=== PATIENT | male | born 1990 | race Caucasian/White ===

== ENCOUNTER 2019-01-10 01:23 | Inpatient (IN) | payer BC, OTHER ==
[2019-01-10] MEDS ORDERED: NS 1,000 ML IV ONE ×2 (01:30)
[2019-01-10] MEDS ORDERED: fentaNYL 100 MCG/2 ML INJ IVP ONE (01:30)
[2019-01-10] MEDS ORDERED: HYDROmorphONE/DILAUDID 2 MG/ML INJ IVP ONE (01:30)
[2019-01-10] MEDS ORDERED: fentaNYL 100 MCG/2 ML INJ ONE ×2 (01:34→20:53)
[2019-01-10] MEDS ORDERED: ONDANSETRON 4 MG/2 ML VIAL IVP ONE (01:36)
--- NOTE | 2019-01-10 01:36 | EDPHY ---
H & P Time Seen by Provider: 01/10/19 01:32 HPI/ROS: HPI CHIEF COMPLAINT: FTA, Fall, Unknown Height, left chest wall pain, left femur pain. HISTORY OF PRESENT ILLNESS: This is a 28-year-old male, he fell climbing this evening. The patient apparently fell around 7:00 p.m. Yesterday evening is now 130 in the morning. EMS made contact with him around 9:00 p.m.. It took a prolonged period of time [place]. He arrives to the emergency room tachycardic in the 140s as a full trauma activation but a normal blood pressure. The patient is mentating appropriately in his main complaint is left lateral chest wall pain, additionally left femur pain. Patient states he is 8/10 pain. Patient received 100 mcg IV fentanyl prior to arrival. He arrives GCS 15, alert or x4. Patient is greeted by myself and Dr. Schaefer. Past Medical History: Denies significant medical history Past Surgical History: No recent surgical history Social History: Denies drugs alcohol tobacco. Family History: Noncontributory ROS REVIEW OF SYSTEMS: 10 Systems were reviewed and negative with the exception of the elements mentioned in the history of present illness. Exam Constitutional triage nursing summary reviewed, vital signs reviewed, awake/ alert. GCS 15, alert or x4. Eyes normal conjunctivae and sclera, EOMI, PERRLA. HENT head and neck atraumatic in cervical collar, normal inspection, atraumatic , moist mucus membranes, no epistaxis, neck supple/ no meningismus, no raccoon eyes. Respiratory decreased breath sounds left chest, no respiratory distress, no wheezing. Cardiovascular chest wall: Mild tender palpation left lateral chest wall, no crepitus, decreased breath sounds left chest rate normal, regular rhythm, no murmur, no edema, distal pulses normal. Gastrointestinal soft, non-tender, no rebound, no guarding, normal bowel sounds, no distension, no pulsatile mass. Genitourinary no CVA tenderness. Musculoskeletal left lower extremity: Neurovascular intact good distal pulse, good cap refill, warm extremity however pain to the mid femur region. no midline vertebral tenderness, full range of motion, no calf swelling, no tenderness of extremities, no meningismus, good pulses, neurovascularly intact. Skin abrasions left arm. Multiple abrasions of bilateral knees. Abrasion to left scapula. Neurologic mentating appropriately, awake, alert and oriented x 3, AAOx3, moves all 4 extremities equally, motor intact, sensory intact, CN II-XII intact , normal cerebellar, normal vision, normal speech. Psychiatric normal mood/affect. Heme/Lymph/Immune no lymphadenopathy. Differential Diagnosis: Includes but is not limited to in a particular order poly trauma, closed-head injury, intracranial bleed, cervical spine fracture, chest wall injury, rib fracture, pneumothorax, hemothorax, solid organ injury, hypothermia, dehydration Medical Decision Making: Plan for this patient IV establishment corner former , basic labs, type and screen, chest x-ray, pelvis x-ray, left femur x-ray will proceed with CT scan head and neck chest abdomen pelvis. Re-evaluation: 0130: Fast negative. 2nd IV established Type and screen Chest x-ray one view reviewed at bedside in ER room 2 shows a small left-sided pneumothorax, subcutaneous air present. Left femur x-ray reviewed shows proximal left femur fracture spiral comminuted. This patient need to be admitted to the hospital for left femur fracture, spiral comminuted, additionally multiple left-sided rib fractures, additionally left-sided pneumothorax, additionally dehydration, and a fall Patient to be admitted to Dr. Schaefer with Trauma surgery. Orthopedic surgeries been consulted Patient was placed in a traction splint left leg due to spiral left femur fracture. This is closed. Patient's left leg at neurovascular intact distally good distal pulse. CT scan head without contrast no acute intracranial abnormality faxed me by direct Radiology 2:[address] cervical spine: Shows no evidence of acute cervical spine fracture. However there is an acute T3 compression fracture with less than 25% height loss of the superior endplate CT scan chest abdomen pelvis with IV contrast faxed to me by direct Radiology at 3:32 a.m.. This shows acute fracture involving the T3 superior endplate anterior left 2nd and 4th ribs lateral left 6th and 7th ribs and comminuted intertrochanteric left femoral fracture No acute vascular solid organ injury There is prominence subcutaneous emphysema the left chest wall left-sided pneumothorax approximately 25% Pulmonary contusions involving the left upper lobe lingula right middle lobe Patient to be admitted to the ICU. Close monitoring. Dr. Cotto with Orthopedics also consult for the left femur fracture. Patient in traction. Good distal pulse good cap refill. Of the left lower extremity. Warm extremity. Critical Care: Total Critical Care Time Spent Managing this Patient: 85 Minutes. This time was spent Exclusively with this patient. This Care was exclusive of procedures. The Organ System/life at risk was poly trauma, multiple traumatic injuries including left-sided pneumothorax, left-sided rib fractures, T3 fracture, pulmonary contusion, femur fracture This Patient was in Critical Condition because poly trauma multiple traumatic injuries. 4:[address] Schaefer updated about patient's test results. Plan for ICU admission for close monitoring. Source: Patient, EMS Constitutional: Initial Vital Signs Temperature (C) 37.1 C 01/10/19 04:19 Heart Rate 116 H 01/10/19 04:19 Respiratory Rate 24 H 01/10/19 04:19 Blood Pressure 123/79 H 01/10/19 04:19 O2 Sat (%) 97 01/10/19 04:19 Allergies/Adverse Reactions: No Known Allergies Allergy (Unverified 01/10/19 02:25) Home Medications: Medication Instructions Recorded NK [No Known Home Meds] 01/10/19 Medical Decision Making - Data Points Laboratory Results: Laboratory Results 01/10/19 01:30 01/10/19 01:30 01/10/19 01:30 Patient ABO/Rh O POSITIVE Antibody Screen NEGATIVE Crossmatch IS Only See Detail Bld Prod Verbal Order YES Medications Given: Bacitracin (Bacitracin Ointment) 1 omkar TP BID SHAEN Stop: 02/09/19 16:29 Last Admin: 01/11/19 01:36 Dose: Not Given Hydromorphone HCl (Dilaudid) 0.4 - 0.8 mg IVP Q2HRS PRN PRN Reason: Pain, Severe Unable to Take PO Stop: 01/20/19 02:55 Last Admin: 01/10/19 17:15 Dose: 0.4 mg Lactated Ringer's (Lr) 1,000 mls @ 150 mls/hr IV CONT SHANE Stop: 07/09/19 10:29 Last Admin: 01/11/19 01:26 Dose: 1,000 mls Discontinued Medications Bupivacaine HCl/Epinephrine Bitart (Bupivacaine/Epi) Confirm Administered Dose 30 ml .ROUTE .STK-MED ONE Stop: 01/10/19 18:26 Last Admin: 01/10/19 20:41 Dose: 30 ml Cefazolin Sodium (Ancef) Confirm Administered Dose 1 gm .ROUTE .STK-MED ONE Stop: 01/10/19 23:00 Last Admin: 01/11/19 01:36 Dose: Not Given Cefazolin Sodium (Ancef) Confirm Administered Dose 1 gm .ROUTE .STK-MED ONE Stop: 01/10/19 23:00 Last Admin: 01/11/19 01:37 Dose: Not Given Fentanyl (Sublimaze) 100 mcg IVP EDNOW ONE Stop: 01/10/19 01:31 Last Admin: 01/10/19 01:35 Dose: 100 mcg Hydromorphone HCl (Dilaudid) 1 mg IVP EDNOW ONE Stop: 01/10/19 01:31 Last Admin: 01/10/19 03:24 Dose: 1 mg Sodium Chloride (Ns) 1,000 mls @ 0 mls/hr IV ONCE ONE; Wide Open PRN Reason: Protocol Stop: 01/10/19 01:31 Last Admin: 01/10/19 01:25 Dose: 1,000 mls Sodium Chloride (Ns) 1,000 mls @ 0 mls/hr IV ONCE ONE PRN Reason: Wide Open Stop: 01/10/19 01:31 Last Admin: 01/10/19 01:25 Dose: 1,000 mls Lactated Ringer's (Lr) 1,000 mls @ 0 mls/hr IV ONCE ONE PRN Reason: As Directed Stop: 01/10/19 17:51 Last Admin: 01/10/19 17:53 Dose: 1,000 mls Cefazolin Sodium/Dextrose (Ancef) 100 mls @ 200 mls/hr IV ONCALL ONE PRN Reason: Protocol Stop: 01/10/19 18:49 Last Admin: 01/10/19 19:01 Dose: 100 mls Midazolam HCl (Versed) 2 mg IVP ONCALL ONE Stop: 01/10/19 18:08 Last Admin: 01/10/19 18:48 Dose: 2 mg Ondansetron HCl (Zofran) 4 mg IVP EDNOW ONE Stop: 01/10/19 01:37 Last Admin: 01/10/19 03:24 Dose: 4 mg Point of Care Test Results: Chemistry 01/10/19 01:34 POC Sodium 139 mEq/L mEq/L (135-145) POC Potassium 4.2 mEq/L mEq/L (3.3-5.0) POC Chloride 103 mEq/L mEq/L (97-110) POC Total CO2 25 mEq/L mEq/L (22-31) POC BUN 29 mg/dL H mg/dL (7-23) POC Creatinine 1.2 mg/dL mg/dL (0.7-1.3) POC Glucose 217 mg/dL H mg/dL (70-100) ISTAT H&H 01/10/19 01:34 POC Hgb 13.3 gm/dL L gm/dL (13.7-17.5) POC Hct 39 % L % (40-51) Departure - Departure Disposition: [facility] Inpatient Acute Clinical Impression: Femur fracture, left, Rib fractures, Acute pneumothorax, Fall, Dehydration, T3 vertebral fracture Condition: Critical
[2019-01-10] MEDS ORDERED: IOPAMIDOL (ISOVUE-300) 100 ML BTL ONE (01:39)
[2019-01-10 01:42] LABS: PLATELET COUNT 208 10^3/uL (150-400)
[2019-01-10] MEDS ORDERED: HYDROmorphONE/DILAUDID 1 MG/ML INJ ONE (01:52)
[2019-01-10 02:18] LABS: CREATINE KINASE 1150 IU/L (0-224)
--- NOTE | 2019-01-10 02:44 | SOAPPROG ---
SOAP Progress Note Assessment/Plan: Assessment: 28 male rescued after climbing fall/ brief loc/ co left thigh pain cxr and ct small left pneumo femur splintered midshaft fx, left FAST negative hct 38 etoh - Plan:admit icu obs/ ortho consult 01/10/19 02:41 ICD10 Worksheet Patient Problems: Problems Problem Status Onset Acute pneumothorax Acute Dehydration Acute Fall Acute Femur fracture, left Acute Rib fractures Acute
[2019-01-10] MEDS ORDERED: D5W 1/2 NS W/ 20 KCl/L 1,000 ML IV SCH (03:00)
--- NOTE | 2019-01-10 07:23 | CPEKG ---
Test Reason : OPEN Blood Pressure : / mmHG Vent. Rate : 118 BPM Atrial Rate : 119 BPM P-R Int : 152 ms QRS Dur : 083 ms QT Int : 326 ms P-R-T Axes : 077 068 -02 degrees QTc Int : 457 ms Sinus tachycardia Probable left atrial enlargement Minimal ST depression, inferior leads Confirmed by Fernando Chen ([id number]) on 01/10/2019 7:22:39 AM Referred By: Fernando Chen Confirmed By:Fernando Chen
--- NOTE | 2019-01-10 09:04 | GHP ---
[f rep st] PREOP HISTORY AND PHYSICAL DATE OF ADMISSION: 01/10/2019 HISTORY OF PRESENT ILLNESS: Patient is a 28-year-old male who fell rock climbing. It took several h ours to extricate him from the area. The fall was around 7:00 p.m. He was brought to the ER late in the evening, at which time he was normotensive but tachycardic and complaining of left leg pain. He was alert and oriented, feels like he probably got knocked out briefly, but it was so long ago. He does not remember exactly the details of the fall. PAST MEDICAL HISTORY: Includes no major medical problems or hospitalizations and no recent significa nt surgeries. SOCIAL HISTORY: He does not smoke. FAMILY HISTORY: Noncontributory. REVIEW OF SYSTEMS: Negative on a full 10-point review of systems that was related to the HPI. PHYSICAL EXAMINATION: GENERAL: An alert 28-year-old male in no acute distress. HEAD AND NECK: Rev eals no signs of trauma. Pupils are normal. Occlusion is normal. There are no abrasions or contusi ons. NECK: Supple, nontender, although he is in the collar at the moment. CHEST: Reveals some ten derness in the lateral left chest wall with some subcutaneous crepitus. Breath sounds are equal. CA RDIAC: Exam reveals irregular tachycardia, but no murmurs. ABDOMEN: Soft and nontender without mass es, organomegaly or hernias. FAST EXAM: Negative. GENITALIA: Normal. PELVIS: Reveals no pain or instability. EXTREMITIES: Reveal full pulses. He has decreased range of motion on the left leg wi th a deformity of the thigh, consistent with a significant femur fracture. He does have a significan t amount of swelling in the left thigh. The other 3 extremities are fine, with no signs of trauma. NEUROLOGIC: Physiologic and symmetric except for the limitations of his left leg fracture. PSYCH: Reveals him to be alert, oriented, and cooperative. IMPRESSION: 1. Small left pneumothorax, probable left rib fractures. 2. Splintered midshaft femur fracture. 3. Probable mild closed head injury. PLAN: Orthopedic consultation for open reduction, internal fixation of the femur, hospital admission , pain control. /[id number]/MODL
--- NOTE | 2019-01-10 09:29 | TRAUMAPNT ---
Trauma Tertiary Progress Note New Findings: t3 compression fx minimal loss of height <25%. mildly ttp at t2/ t3. neurosurgery consulted Assessment/Plan: 28 yo fall climbing c/o left sided pain chest and leg findings of communited left femur fx -Dr Cotto to perform ORIF today L rib fx 3 and 6 th with ptx and subcutaneous emphysema chest xray <10 % stable CT probable 15-25% Pain controlled No urination yet bedrest AVSS RRR diminished left with sq air clear right abd soft NT nD Extr dnviu abrasions dressed H/H 13 to 11 DOing well Clear liq npo after 1 pm neurosurg for t3 likely non op palma for urine output management may need chest tube if decompensates perioperatively Objective: Vital Signs Temp Pulse Resp BP Pulse Ox 37.1 C 117 H 21 H 136/81 H 97 01/10/19 05:06 01/10/19 06:00 01/10/19 06:00 01/10/19 06:00 01/10/19 06:00 Laboratory Results 01/10/19 03:40 01/09/19 01/10/19 01/11/19 05:59 05:59 05:59 Intake Total 2498 Output Total 0 Balance 2498 - C-Spine Clearance Cervical Spine Cleared: Yes Provider who Cleared Cervical Spine: isai Time Cervical Spine was Cleared: 08:30
--- NOTE | 2019-01-10 09:47 | NEUSURGPN ---
Assessment/Plan: 28 yo male s/p fall while rock climbing with mild T3 compression fracture Patient not experiencing any severe pain at the upper thoracic region and no pain with palpation. Fracture is mild. - recommend no bracing, can be up out of bed as tolerated - if starts to develop thoracic pain then will need a [employer] brace worn when out of bed - clear from neurosurgery standpoint for surgery with ortho Patient seen by myself and Dr. Mesa. Full consult note dictated. Subjective: No severe pain at upper thoracic region. Objective: Awake. Alert. PERRL. EOMI Facial expression symmetrical Muscle strength full UE at 5/5 LE strength R 5/5, L- unable to assess due to fracture - Physician Patient Seen by Dr.: Mesa Neurosurgery Physical Exam - Vitals, I&O, Labs I and O 01/09/19 01/10/19 01/11/19 05:59 05:59 05:59 Intake Total 2498 Output Total 0 Balance 2498 Weight 63.3 kg Intake: IV Infused (ml) 2498 D5W 1/2 NS W/ 20 KCl/L 1, 248 000 ml @ 100 mls/hr IV CONT SHANE Rx#:[id number] Output: Urine (ml) 0 Urinal 0 Other: Number of Voids 0 Bladder Scan Volume (ml) Urinal 480 Vital Signs Temp Pulse Resp BP Pulse Ox 37.1 C 117 H 21 H 136/81 H 97 01/10/19 05:06 01/10/19 06:00 01/10/19 06:00 01/10/19 06:00 01/10/19 06:00 Laboratory Results 01/10/19 03:40 ICD10 Worksheet Patient Problems: Problems Problem Status Onset Acute pneumothorax Acute Dehydration Acute Fall Acute Femur fracture, left Acute Rib fractures Acute T3 vertebral fracture Acute
--- NOTE | 2019-01-10 09:50 | ASMTCASEMG ---
Living Arrangements What is your living Answers: Alone arrangement? Who do you live with? Type Of Residence What kind of residence do Answers: Apartment you live in? Discharge Plan Comments Coordination Status Comments Notes: Patient is a 28yo single male who was brought emergently to [facility] as a result of a fall while rock climbing. Patient is being admitted for left pneumothroax, splintered midshaft femur fracture, and probable mid closed head injury. Patient's PCP is Lincoln Brar. Patient will need surgery. 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 D/C plan TBD. CM following. Date Signed: 01/10/2019 09:50 AM Electronically Signed By:Dia Breen LCSW
[2019-01-10] MEDS: HYDROmorphONE/DILAUDID 1 MG/ML INJ IVP PRN ×3 (09:51→17:15)
--- NOTE | 2019-01-10 09:56 | PDMN ---
Medical Necessity Medical necessity: Pt meets inpt criteria per MD order and MCG M-500, Pneumothorax, A-2 days, inpt adm indicated for: traumatic pneumothorax sustained after fall while climbing and MCG S-470, Femur Fracture, Shaft, Internal Fixation, 2 days. 28 y/o admitted w/mult injuries sustained in climbing fall including rib fx's w/pneumothorax and subcutaneous emphysema, comminuted L femur fx- will have ORIF today, probable mild closed head injury, and T3 compression fx, neurosurg consult. Est LOS>2MN for further management of mult injuries including surgical intervention for midshaft femur fx.
[2019-01-10] MEDS: LR 1,000 ML IV SCH (12:22)
--- NOTE | 2019-01-10 15:19 | GCON ---
[f rep st] CONSULTATION DATE OF CONSULTATION: 01/10/2019 HPI: The patient is a 28-year-old male who presented to the emergency department following a fall while rock climbing. The patient does not remember the exact events of the fall. He currently denies headaches, nausea and vomiting. No lower extremity or upper extremity numbness or tingling. He denies radicular pain and loss of bowel or bladder control. He has mild pain in between his shoulder blades and in his left leg due to his femur fracture. PAST MEDICAL HISTORY: Denies. PAST SURGICAL HISTORY: Denies. ALLERGIES: No known drug allergies. HOME MEDICATIONS: Denies. SOCIAL HISTORY: Patient admits to frequent alcohol use at 2 to 3 beers a night ; however, has not drank in the past several days. He admits to occasional use of marijuana. He quit tobacco use. FAMILY HISTORY: No pertinent neurosurgical family history. REVIEW OF SYSTEMS: Negative except for what is mentioned in the HPI PHYSICAL EXAM: GENERAL: The patient was seen and examined. Appears to be in no apparent distress. Mood and affect are appropriate. Alert and oriented. VITAL SIGNS: Blood pressure 119/84, heart rate 104, respiration rate is 19, breathing 98% on 2 L nasal cannula. HEENT: Extraocular movements are intact. Pupils are equal, reactive. Facial expression is symmetrical. Tongue is midline with protrusion. Hearing is grossly intact. Speech is fluent without dysarthria. EXTREMITIES: He has multiple abrasions over his upper and lower extremities. His upper extremity strength is full at a 5/5. His right lower extremity leg strength is full at 5/5. Unable to access left lower extremity due to fixation device. LABORATORY DATA: White count 25.8, hemoglobin 13.4, hematocrit 38.2, platelet count 208. Sodium 137, potassium 4.6, chloride 103, bicarb 22, BUN 31, creatinine 1.1. CT of the head and CT of the cervical spine: No acute intracranial process or cervical spine fracture or subluxation. CT of the chest: He had a moderate left pneumothorax with subcutaneous air in the left chest wall extending to the posterior left neck, ground-glass nodules in the left upper lobe and right middle lobe likely representing pulmonary contusions, superior compression deformity of T3, displaced fractures of the lateral 6th and 7th ribs on the left, possible nondisplaced fractures of the left anterior 2nd and 4th ribs. ASSESSMENT AND PLAN: In summary, the patient is a 28-year-old male status post fall while rock climbing. He has a mild compression fracture at T3. He is neurologically intact and does not have any severe pain at the site of the fracture at rest or with palpation. Since the fracture is mild and the patient' s pain is also mild, we do not recommend bracing or surgical intervention at this time. He can be up as tolerated without a brace. Should he develop severe pain at this location, then we can look at fitting him with a PANTRY GOODS MAKER brace to be worn when out of bed. The patient may follow up with us as an outpatient as needed. Please contact us should patient develop significant pain or have a change in neurological exam. We will sign off and follow peripherally. The patient was seen by myself and Dr. Mesa. NEUROSURGERY ATTENDING NOTE I saw the patient at the time of the consult. He has no midline pain near the fracture site. I discussed with him the treatment options for a compression deformity, including close monitoring, bracing, and surgery. Given his lack of clinical symptoms, however, we will plan for no further interventions or imaging unless he develops any symptoms or pain in this region. He agreed and expressed an understanding of this plan. We will plan to see him PRN. He is cleared to go to the OR with Orthopedics to fix his leg fracture. I reviewed this with the Trauma Service and they were in agreement with our plan. /[id number]/MODL MTDD
--- NOTE | 2019-01-10 16:45 | GCON ---
[f rep st] CONSULTATION PULMONARY CRITICAL CARE CONSULTATION DATE OF CONSULTATION: 01/10/2019 REASON FOR CONSULTATION: Intensive care unit evaluation and management of multiple trauma. HISTORY OF PRESENT ILLNESS: Patient is a very pleasant, healthy 28-year-old who was rock climbing in [facility] yesterday. He fell when a block of rock that he was pulling up on came off. He ap parently fell approximately 50 feet. No protection was in. He landed on a ledge. He was eventually extracted by [facility] and brought to the emergency department. Multiple imaging studie s were done. The most significant injury is a femur fracture of the midshaft on the left. He had se veral left rib fractures, nondisplaced, and a small left pneumothorax, which has been stable. He was found to have a T3 compression fracture, mild. He has been seen by Neurosurgery. No treatment is c urrently recommended. He has also been found to have a fracture of the left wrist and his distal sca phoid. He had no head trauma. Head CT and cervical spine CT are both normal. He is to be taken to the operating room this afternoon/evening for his femur fracture. PAST MEDICAL HISTORY: Unremarkable. He has no medical problems, takes no medications. 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 Tobacco and significant alcohol ar e negative. He is engaged. His fiancee is currently in [facility], coming back. Parents [place] alfaro fly in tomorrow. PHYSICAL EXAMINATION: GENERAL: Reveals a very pleasant young man who is in no distress. Left lower extremity is in traction. VITAL SIGNS: Blood pressure is 125/90, heart rate 105 with sinus rhythm on the monitor. He is afebrile. HEENT: Unremarkable for lymphadenopathy or thyromegaly. Pupils eq ual. LUNGS: Clear. Breath sounds and excursions are diminished in part secondary to rib pain. HEA RT: Regular in rate and rhythm to slightly tachycardic. There are no significant murmurs, no gallop s. ABDOMEN: Soft, nontender. Bowel sounds are diminished, but present. : A Andre catheter is i n place as he had urinary retention. EXTREMITIES: Remarkable for the left lower extremity being wra pped, in traction. There is no significant edema. Skin remarkable for some areas of abrasion. The right wrist is tender. NEUROLOGIC: Examination is within normal limits. LABORATORY: White blood cell count on early this morning was approximately 26,000, hematocrit 38, pl atelets are 208,000. Followup hematocrit several hours later was 32.6. Chemistries are within oralia l limits. Glucose was 217. CPK 1150. Troponin was negative. ASSESSMENT: 1. Status post fall, with multiple trauma. This includes a left femur fracture, small T3 compressio n fracture without associated cord compromise, instability, or pain, rib fractures with a small and s table pneumothorax. No chest tube has been required. A right wrist fracture of the scaphoid bone jensen s been identified. 2. Acute blood loss anemia. 3. Pneumothorax: Stable, small. 4. Prophylaxis: Sequential compression devices. He will be eating postoperatively, no gastrointest inal prophylaxis indicated. Deep venous thrombosis prophylaxis postoperatively. PLAN AND RECOMMENDATIONS: Patient will be kept in the intensive care unit on step-down status pendin g surgery later today. Intravenous fluids will be continued. Adequate pain control will be maintain ed. Laboratory will be followed. Further plans and recommendations will be made based on his progress over the next 12 to 24 hours. /[id number]/MODL
[2019-01-10] MEDS: BACITRACIN OINTMENT 1 PACKET TP SCH (17:00)
--- NOTE | 2019-01-10 17:12 | PDGENHP ---
History and Physical History and Physical: CC: L femur injury HPI: 28yo male fell climbing last evening. Prolonged extraction from [place]. Seen at [facility] ER. Admitted to trauma service. Also with pneumo and T3 fx. Placed in traction. Denies N/T in the foot. PSH: wisdom teeth PMH:none SocHx: none FHx: non-contributory Exam Gen: NAD Msk LLE: -deformity of thigh, in traction -SILT -intact toe DF/PF A/p: L subtroch femur fx with ext into GT and LT -plan surgical fixation
--- NOTE | 2019-01-10 17:39 | GCON ---
[f rep st] CONSULTATION DATE OF CONSULTATION: 01/10/2019 REFERRING PHYSICIAN: Farzad Schaefer MD CHIEF COMPLAINT: Left leg injury. HISTORY OF PRESENT ILLNESS: This is a 28-year-old male who fell yesterday evening rock climbing. He was at [facility]. He was on his second pitch. He was the first climber going up and fell 10- to 15 feet onto a ledge before he could place his first protective gear. It took several hours to extract him from the pontiac. I was called to consult early this morning. My recommendations were for surgical fixation in a timely fashion today. I saw the patient this morning. He was placed in skin traction and states that he feels comfortable in the skin traction. He denies any numbness or tingling in his left leg. He has some chest and back pain. Denies prior injury to that leg. Of note, this patient is well known to me. I have seen him in clinic on several occasions for cubital tunnel syndrome. PAST MEDICAL HISTORY: None. SOCIAL HISTORY: He does not smoke. FAMILY HISTORY: Noncontributory. PAST SURGICAL HISTORY: Center teeth extraction. REVIEW OF SYSTEMS: Ten point review of systems was negative except as noted above. OBJECTIVE: GENERAL: A 28-year-old male in the ICU with current skin traction unit applied. He does not appear in any distress. Alert and oriented. MUSCULOSKELETAL: His left leg is in a skin traction. In the unit, he is able to dorsiflex and plantar flex his toes. I am unable to test the ankle due to the skin traction unit. He is intact to light touch in all dermatomes of the foot and his toes are well perfused. IMAGING: X-ray of the left femur was reviewed which shows a subtroch variant type femur shaft fracture. There is a large intervening butterfly fragment. This is a proximal shaft fracture. There appears to be a separate fragment comprising of the posterior medial calcar and lesser trochanter extending into the greater trochanter. When I review the CT scan, I am unable to visualize a femoral neck fracture. The greater trochanter fracture is a coronal split that extends down into the lesser. This is minimally displaced. ASSESSMENT AND PLAN: Left subtrochanteric femur shaft fracture along with involvement of the greater and lesser trochanter. The time will be surgical fixation today when OR is available. He will be admitted back to the trauma service. I appreciate the assistance of the trauma service. I read the report of neurosurgery service who had seen the patient and cleared him for procedures. Since I saw the patient, an x-ray was performed of his right wrist , which I reviewed. There is a nondisplaced distal pole scaphoid fracture, and what appears to be a small avulsion at the 1st metacarpal base at the cmc joint. I will address these fractures as well. I think the scaphoid fracture at the distal pole, nondisplaced can be treated with immobilization involving casting. The same goes for the metacarpal avulsion. /[id number]/MODL MTDD
[2019-01-10] MEDS ORDERED: LR 1,000 ML IV ONE (17:50)
[2019-01-10] MEDS ORDERED: MIDAZOLAM 2 MG/2 ML VIAL IVP ONE (18:07)
[2019-01-10] MEDS ORDERED: DEXAMETHASONE 4 MG/ML VIAL ONE (18:17)
[2019-01-10] MEDS ORDERED: PROPOFOL 200 MG/20 ML VIAL ONE (18:17)
[2019-01-10] MEDS ORDERED: ROCURONIUM 50 MG/5 ML VIAL ONE ×4 (18:17→22:08)
[2019-01-10] MEDS ORDERED: ONDANSETRON 4 MG/2 ML VIAL ONE (18:17)
[2019-01-10] MEDS ORDERED: LIDOCAINE 2% 5 ML SDV ONE (18:17)
[2019-01-10] MEDS ORDERED: fentaNYL 250 MCG/5 ML INJ ONE (18:17)
[2019-01-10] MEDS ORDERED: ceFAZolin 2 GM/DEXTROSE 100 ML IV ONE (18:20)
--- NOTE | 2019-01-10 18:20 | PDHPUP ---
History & Physical Update H&P update statement: This history and physical update is based on an assessment of the patient which was completed after admission or registration (within 24 hours), but prior to the surgery/procedure. H&P update: H&P reviewed & patient examined, no change in patient's condition since H&P completed
--- NOTE | 2019-01-10 18:21 | POSTANESTH ---
Post Anesthetic Evaluation Cardiovascular Status: Normal, Stable Respiratory Status: Normal, Stable Level of Consciousness/Mental Status: Can Participate in Eval Pain Control: Adequate, Prn Tx Ordered Nausea/Vomiting Control: Adequate, Prn Tx Ordered Complications Possibly Related to Anesthesia: None Noted
--- NOTE | 2019-01-10 18:21 | PDANEPAE ---
ANE Past Medical History - Cardiovascular History Hx Hypertension: No Hx Arrhythmias: No Hx Chest Pain: No Hx Coronary Artery / Peripheral Vascular Disease: No - Pulmonary History Hx COPD: No Hx Asthma/Reactive Airway Disease: No Hx Oxygen in Use at Home: No Hx Sleep Apnea: No Sleep Apnea Screening Result - Last Documented: Negative - Endocrine History Hx Diabetes: No Hypothyroid: No - Renal History Hx Renal Disorders: No - Liver History Hx Hepatic Disorders: No - Neurological & Psychiatric Hx Neurological / Psychiatric History Comment: Mild cuncussion with fall. Passed concussion test today. - Cancer History Hx Cancer: No - Congenital Disorder History Hx Congenital Disorders: No - GI History GERD: no Hx Gastrointestinal Disorders: No - Chronic Pain History Chronic Pain: No ANE Review of Systems Review of Systems: ANE Patient History - Allergies Allergies/Adverse Reactions: No Known Allergies Allergy (Unverified 01/10/19 02:25) - Home Medications Home Medications: NK [No Known Home Meds] 01/10/19 [Last Taken Unknown] - NPO status NPO Since - Liquids (Date): 01/10/19 NPO Since - Liquids (Time): 10:30 NPO Since - Solids (Date): 01/09/19 NPO Since - Solids (Time): 22:00 - Smoking Hx Smoking Status: Former smoker ANE Labs/Vital Signs - Labs Result Diagrams: 01/10/19 17:20 01/10/19 01:30 - Vital Signs Blood Pressure: 127/89 Heart Rate: 109 Respiratory Rate: 20 O2 Sat (%): 94 Height: 175.26 cm Weight: 63.3 kg ANE Physical Exam - Airway Neck exam: FROM Mallampati Score: Class 1 Mouth exam: normal dental/mouth exam - Pulmonary Pulmonary: no respiratory distress, no rales or rhonchi, clear to auscultation - Cardiovascular Cardiovascular: regular rate and rhythym, no murmur, rub, or gallop - ASA Status ASA Status: II ANE Anesthesia Plan Anesthesia Plan: general endotracheal anesthesia
[2019-01-10] MEDS ORDERED: BUPIVACAINE/EPI 0.5% 30 ML SDV ONE (18:25)
[2019-01-10] MEDS ORDERED: PHENYLEPHRINE HCL 100 MCG/ML SYR ONE ×3 (19:05→21:08)
[2019-01-10] MEDS ORDERED: ROCURONIUM 100 MG/10 ML VIAL ONE (19:09)
[2019-01-10] MEDS ORDERED: PHENYLEPHRINE 10 MG/ML SDV ONE ×2 (21:32)
[2019-01-10] MEDS ORDERED: ceFAZolin 1 GM VIAL ONE ×2 (22:59)
[2019-01-10] MEDS ORDERED: SUGAMMADEX SODIUM 200 MG/2 ML VIAL IVP ONE (23:21)
[2019-01-11] MEDS ORDERED: fentaNYL 100 MCG/2 ML INJ ONE (00:10)
[2019-01-11] MEDS ORDERED: PROMETHAZINE HCL 25 MG/ML INJ IVP PRN (00:18)
[2019-01-11] MEDS ORDERED: HYDROmorphONE/DILAUDID 1 MG/ML INJ IVP PRN (00:18)
[2019-01-11] MEDS ORDERED: oxyCODONE IR 5 MG TAB PO PRN (00:18)
[2019-01-11] MEDS ORDERED: NALOXONE HCL 0.4 MG/ML INJ IVP PRN (00:18)
[2019-01-11] MEDS ORDERED: ACETAMINOPHEN 500 MG TAB PO PRN (00:18)
[2019-01-11] MEDS ORDERED: fentaNYL 100 MCG/2 ML INJ IVP PRN (00:18)
[2019-01-11] MEDS ORDERED: ALBUTEROL 3 ML DEYVIAL IH PRN (00:18)
[2019-01-11] MEDS ORDERED: MEPERIDINE 25 MG/0.5 ML AMP IVP PRN (00:18)
[2019-01-11] MEDS ORDERED: METOCLOPRAMIDE 10 MG/2 ML VIAL IVP PRN (00:18)
[2019-01-11] MEDS ORDERED: PHENYLEPHRINE HCL 100 MCG/ML SYR IVP PRN (00:18)
[2019-01-11] MEDS ORDERED: ONDANSETRON 4 MG/2 ML VIAL IVP PRN (00:18)
[2019-01-11 01:08] LABS: PLATELET COUNT 111 10^3/uL (150-400)
[2019-01-11] MEDS: LR 1,000 ML IV SCH (01:26)
[2019-01-11] MEDS: BACITRACIN OINTMENT 1 PACKET TP SCH ×3 (01:36→20:25)
[2019-01-11] MEDS: oxyCODONE IR 5 MG TAB PO PRN ×4 (03:15→20:40)
[2019-01-11] MEDS: ceFAZolin 2 GM/DEXTROSE 100 ML IV SCH ×3 (05:44→22:33)
[2019-01-11] MEDS: ACETAMINOPHEN 325 MG TAB PO SCH ×4 (05:50→23:50)
[2019-01-11 06:09] LABS: PLATELET COUNT 98 10^3/uL (150-400)
[2019-01-11 07:33] LABS: CREATINE KINASE 7914 IU/L (0-224)
--- NOTE | 2019-01-11 07:46 | SOAPPROG ---
SOAP Progress Note Assessment/Plan: Assessment/Plan 28 yo fall climbing c/o left sided pain chest and leg findings of communited left femur fx -Dr Cotto ORIF 01/10. c/o numbness firht foot L rib fx 10/28 and with ptx and subcutaneous emphysema chest xray <10 % stable CT probable 15-25% rt wrist fx casted 01/10 Yadiel CXR this am slight increase in ptx (likely due to positive pressure ventilation during orif) Pain controlled AVSS RRR diminished left with sq air clear right abd soft NT nD Extr dnviu abrasions dressed Doing well s/p orif reg diet PT/OT may need chest tube if decompensates perioperatively No treatment of minimal T3 compression fx 01/11/19 07:43 Objective: Vital Signs Temp Pulse Resp BP Pulse Ox 37.7 C 116 H 19 118/85 H 100 01/11/19 04:00 01/11/19 04:00 01/11/19 04:00 01/11/19 04:00 01/11/19 04:00 Laboratory Results 01/11/19 05:18 01/11/19 05:18 01/10/19 01/11/19 01/12/19 05:59 05:59 05:59 Intake Total 8388 0694 Output Total 0 2515 Balance 2498 3061 ICD10 Worksheet Patient Problems: Problems Problem Status Onset Acute pneumothorax Acute Dehydration Acute Fall Acute Femur fracture, left Acute Rib fractures Acute T3 vertebral fracture Acute
[2019-01-11] MEDS ORDERED: MAGNESIUM HYDROXIDE 30 ML UDCUP PO PRN (07:47)
[2019-01-11] MEDS ORDERED: BISACODYL 10 MG SUPP PR PRN (07:47)
[2019-01-11] MEDS ORDERED: LACTULOSE 20 GM/30 ML UDCUP PO PRN (07:47)
[2019-01-11] MEDS ORDERED: POLYETHYLENE GLYCOL 3350 17 GM PKT PO PRN (07:47)
[2019-01-11] MEDS: HYDROmorphONE/DILAUDID 1 MG/ML INJ IVP PRN (10:29)
--- NOTE | 2019-01-11 10:32 | GOP ---
[f rep st] OPERATIVE REPORT DATE OF OPERATION: 01/10/2019 SURGEON: Dangelo Cotto MD ANESTHESIA: General. PREOPERATIVE DIAGNOSIS: 1. Comminuted complex left proximal femur shaft fracture extending into the lesser and greater trochanters. 2. Lesser and greater trochanter fractures. 3. Right nondisplaced distal pole scaphoid fracture. POSTOPERATIVE DIAGNOSIS: same PROCEDURE PERFORMED: 1. Left femur shaft fracture open treatment with intramedullary nailing. 2. Left femur open treatment of greater tuberosity fracture with cable system. 3. Closed treatment of right nondisplaced distal pole scaphoid fracture. 4. Intraoperative use of fluoroscopy greater than one hour. ESTIMATED BLOOD LOSS: 1000 cc. SKILLED LABORER: Edwin Fenton was the evaluation assistant for this surgery. A evaluation assistant was medically necessary for retraction and the safe and successful completion of this case. INDICATIONS: Alber is a 28-year-old male who sustained this injury late night in the evening while rock climbing at [facility]. He was leading the 2nd pitch and fell, landing on to the ledge below 15 to 20 feet. He had prolonged extraction. Was then seen at the [facility] ER. I was consulted for management of the injury. I reviewed the x-rays. This is a complex femur shaft fracture pattern. There appears to be a part of the fracture that extended into the lesser and greater trochanter and an intervening butterfly fragment. Surgical fixation is indicated for this injury. Afterward, he also complained of some wrist pain. An x-ray was performed which showed a nondisplaced distal pole scaphoid fracture with a plan to treat closed with a cast. I discussed risks and benefits with him. Risks include pain, bleeding, infection, damage to surrounding structures, delayed union, nonunion, malrotation, leg-length discrepancy, heterotopic ossification, need for further surgery, nerve injury, limp. He understood these risks and wished to proceed. DESCRIPTION OF PROCEDURE: The patient was seen in the preoperative holding area and was given an opportunity to ask any more questions. All questions were answered. Consent was signed. Surgical site was marked. He was transferred to operative suite. In the operative suite, great care was taken to transfer him from the gurney to the fracture table. This was done after general anesthesia was induced. A time-out was called, including surgical and anesthesia teams, confirming the surgical site and procedure to be performed. 2 g of Ancef was given prior to incision. On the fracture table, both of the legs were placed in the leg holders. The uninjured leg was dropped down to scissors the legs. I first had to perform provisional reduction with traction and rotation. However, no real reduction could be achieved. The fracture was completely unstable. With the thought to establish length, this was done by measuring the length of the uninjured femur and saving this measurement for later reference, and then we sought to establish rotation. I took an AP of the injured hip. Then took an AP of the uninjured hip and rotated it until it matched the rotation of the injured hip. This was somewhat difficult as the lesser trochanter on the uninjured hip was fractured off and I had to use other landmarks. After this, I then checked the rotation of the uninjured knee on AP view, saved that, and then went over and took an x-ray of the injured knee and then matched the rotation of that knee to the uninjured knee. I then locked that position. Then we prepped and draped in the usual sterile fashion. We prepped the whole leg out free. I first made an incision for a standard starting point for a lateral entry nail. I decided to give an attempt to pass the wire, although I was concerned about the fact that the greater trochanter was split coronally. With my starting point checked under fluoroscopy, I passed the starting pin, checked AP and lateral views, then I passed the starting reamer. Then I passed a guidewire. I was able to pass the guidewire in the correct position, and when I was passing through the proximal fragment, there was nothing holding the guidewire in the femur. This was a very concerning sign that these lesser and greater trochanter components were essentially a coronal split of the entire proximal femur. At this point, I decided to make an open incision over the fracture site. I made my incision, made a split in the IT band, then I began elevating the vastus lateralis off the intermuscular septum. I elevated it and identified the fracture site. I examined it. There was a large butterfly fragment. Then the proximal femur was indeed completely coronally split. I addressed this by first using a large lobster reduction clamp to clamp this fragment. This took some work to let off traction and perform some abduction, to decrease the pull on the greater tuberosity fragment, and then I was able to clamp it. After I was able to clamp it, I checked the reduction. It was essentially anatomic. I then held the reduction with a cable. I passed the cable. I did not tighten it fully, but I tightened it provisionally to hold the reduction. With this, I was quite happy. Then I thought to reduce the proximal fragment that was now tightened to the distal fragment. I first passed the butterfly piece into the correct position under the cerclage wire, and then I reduced the proximal fragment to the distal fragment with some increased traction and a bone hook. I had essentially an anatomic reduction, apart from the butterfly fragment. I then held that with another cable and then again provisionally tightened the cable. When this was done, I then turned my attention back to performing the nailing. I passed a guidewire, confirmed its position, confirmed the reduction. Then I started with an 8.5 end-cutting reamer and then went up to an 11.5 reamer. There was a lot of chatter with 11.5 , had a fairly narrow canal. I measured for the length, which was a 380 nail. Then I used the opening 15 mm reamer for the proximal portion. Then I passed the nail, then held it in reduction carefully, and it passed nicely. I checked my reduction, I was very happy with it. Then I impacted the nail down to the correct position. I placed 2 proximal interlock screws in recon mode in the standard fashion according to the patient accounting representative. I then placed the 2 distal interlocks, placed the static interlocks, in a freehand perfect circles fashion. I took final x-rays. I was very happy with the final x-rays. I checked length with another instrument that was calibrated to my prior ruler, and the length was perfect. I then irrigated copiously with sterile saline, lots of irrigation. Then I closed the IT band with 2-0 Ethibond and then running #1 Vicryl, and the proximal incision was closed with #1 Vicryl. The wound was then closed in layers, and the last layer with alaina. Sterile dressing was applied. He tolerated the procedure well. During the surgery, there was quite a bit of bleeding directly from the bone. There was no vessel bleeding. However, the bone was oozing blood the entire case, and for this reason he required transfusion during the case. I then turned my attention to the right wrist. I placed a thumb spica cast in the standard fashion, a fiberglass cast. He was then taken off the fracture table. Traction was released as soon as possible after reduction was obtained. He was transferred back to his gurney. I check the length and rotation, and matched the contralateral side. He was taken to the PACU in stable condition. IMPLANTS: Synthes LFN recon femur nail and Synthes cabling system. POSTOPERATIVE CONDITION: Stable but guarded. He will be going to the step-down unit. POSTOPERATIVE PLAN: The patient will be admitted to the trauma service. I will follow him while he is in the hospital. /[id number]/MODL and [id number]/MODL [facility]ITAL[facility]er[facility]
[2019-01-11] MEDS: SENNOSIDES/DOCUSATE SODIUM TAB PO SCH ×2 (10:47→20:25)
[2019-01-11] MEDS: ENOXAPARIN 40 MG/0.4 ML SYR SC SCH (10:47)
--- NOTE | 2019-01-11 13:21 | SOAPPROG ---
SOAP Progress Note Assessment/Plan: Assessment: POD#1 s/p L femur IMN and ORIF with cerclage cables -recovering well, has received 2 units total. Hgb stable this am -I suspect foot numbness and ankle weakness 2/2 traction and extent of surgery. Function was intact and strong immediately postop in PACU. Will observe for now R scaphoid distal pole fx -fx small and non-displaced. It would help with mobility to bear weight through cast. I discussed with him that there is some risk to this, but if he can use the hand and there is no pain I think it would be acceptable. Plan: -TTWB LLE -WBAT ok through cast R wrist -Pain ctrl -DVT prophy -24 hr Ancef -PT/OT -Appreciate care of trauma team 01/11/19 13:14 Subjective: Doing fairly well this morning. Had quite a bit of pain when getting up with PT. C/o numbness and weakness in the left foot. R wrist doing fine, no pain Objective: Vital Signs Temp Pulse Resp BP Pulse Ox 37.2 C 106 H 17 128/81 H 100 01/11/19 08:25 01/11/19 12:00 01/11/19 12:00 01/11/19 12:00 01/11/19 12:00 Laboratory Results 01/11/19 05:18 01/11/19 05:18 01/10/19 01/11/19 01/12/19 05:59 05:59 05:59 Intake Total 2498 5584 550 Output Total 0 2515 Balance 2498 3069 550 LLE -dressing with mild serosang breakthrough -FHL and ankle PF 4/5, EHL and ankle DF 3/5 -SILT in all dermatomes - globally decreased sensation subjectively -foot well perfused R wrist -cast in place - Time Spent With Patient Time Spent With Patient: 20 min ICD10 Worksheet Patient Problems: Problems Problem Status Onset Acute pneumothorax Acute Dehydration Acute Fall Acute Femur fracture, left Acute Rib fractures Acute T3 vertebral fracture Acute
--- NOTE | 2019-01-11 15:24 | PDINTPN ---
Senior Product Development Engineer Progress Note Assessment/Plan: Assessment: Status post fall, multiple trauma Left femur fracture. Status post surgery yesterday with ORIF Right scaphoid fracture. Casted Left rib fractures: Stable, some pain with movement Left pneumothorax: Larger today, probably secondary to positive-pressure ventilation during OR. Following. Saturations fine. For repeat x-ray this afternoon. Acute blood-loss anemia: Hematocrit 25 today. Follow Rhabdomyolysis: CPK 7900 today. Renal function fine. Continue intravenous fluids. Prophylaxis: Enoxaparin, eating. Plan: Continue care in the intensive care unit on step-down. Repeat one view chest x-ray this afternoon and in a.m.. Follow laboratory, CPK, CBC. Continue adequate pain control. Continue with DVT prophylaxis postoperatively. 30 min of critical care time spent directly with the patient. Discussed with nursing, ICU multi disciplinary team. Subjective: Doing well. Pain under good control. Denies significant shortness of breath. Objective: Vital Signs Temp Pulse Resp BP Pulse Ox 37.2 C 106 H 17 128/81 H 100 01/11/19 08:25 01/11/19 12:00 01/11/19 12:00 01/11/19 12:00 01/11/19 12:00 Laboratory Results 01/11/19 05:18 01/11/19 05:18 01/10/19 01/11/19 01/12/19 05:59 05:59 05:59 Intake Total 2498 5584 1000 Output Total 0 2515 Balance 2498 3069 1000 Laboratory Tests 01/11/19 05:18 Calcium 6.9 L Total Bilirubin 1.9 H AST 177 H ALT 65 Creatine Kinase 7914 H Albumin 2.1 L CXR: Increased pneumothorax since yesterday. Now moderate. Physical Exam - Physical Exam General Appearance: alert, no apparent distress EENT: PERRL/EOMI, other (Nasal cannula in place at 4 L: 100%.) Neck: normal inspection Respiratory: lungs clear, decreased breath sounds (Left more so than right), other (Some crepitus lateral left chest) Cardiac/Chest: tachycardia (Sinus) Abdomen: non-tender, soft, No normal bowel sounds (Decreased, present) Male Genitalia: other (Andre catheter in place, good urine output) Skin: warm/dry, pallor Extremities: No pedal edema Neuro/Psych: no motor/sensory deficits, No cognition abnormalities ICD10 Worksheet Patient Problems: Problems Problem Status Onset Femur fracture, left Acute Rib fractures Acute Acute pneumothorax Acute Fall Acute Dehydration Acute T3 vertebral fracture Acute
--- NOTE | 2019-01-11 16:45 | TRAUMAPN ---
Trauma Progress Note Assessment/Plan: checked on patient this afternoon - no change in breathing - he feels that he is actually breathing better than yesterday. repeat CXR this afternoon with stable small left PTX. cont supportive care here. Objective: Vital Signs Temp Pulse Resp BP Pulse Ox 37.2 C 92 16 134/82 H 100 01/11/19 08:25 01/11/19 16:00 01/11/19 16:00 01/11/19 16:00 01/11/19 16:00 Laboratory Results 01/11/19 05:18 01/11/19 05:18 01/10/19 01/11/19 01/12/19 05:59 05:59 05:59 Intake Total 2498 5584 1000 Output Total 0 2515 Balance 2498 3069 1000 - C-Spine Clearance Cervical Spine Cleared: Yes Provider who Cleared Cervical Spine: isai Time Cervical Spine was Cleared: 08:30
[2019-01-11] MEDS: NS 1,000 ML IV SCH (17:45)
[2019-01-12] MEDS: oxyCODONE IR 5 MG TAB PO PRN ×5 (00:46→21:04)
[2019-01-12 05:33] LABS: CREATINE KINASE 8314 IU/L (0-224)
[2019-01-12] MEDS: ACETAMINOPHEN 325 MG TAB PO SCH ×3 (06:06→21:03)
[2019-01-12] MEDS: NS 1,000 ML IV SCH (06:24)
[2019-01-12] MEDS: ENOXAPARIN 40 MG/0.4 ML SYR SC SCH (09:56)
[2019-01-12] MEDS: SENNOSIDES/DOCUSATE SODIUM TAB PO SCH ×2 (09:59→21:05)
[2019-01-12] MEDS: BACITRACIN OINTMENT 1 PACKET TP SCH ×2 (10:00→21:06)
--- NOTE | 2019-01-12 10:41 | SOAPPROG ---
SOAP Progress Note Assessment/Plan: Assessment: POD#2 s/p L femur IMN and ORIF with cerclage cables -recovering well, has received 2 units total. Hgb stable this am -Foot numbness has resolved and motion and strength have recovered since yesterday. R scaphoid distal pole fx -fx small and non-displaced. No complaints of pain or cast complications today. Plan: Femur: cont with touch down weightbearing dressing changes as needed continue with pain medication as ordered PT/OT as ordered Scaphoid: cont in cast for now f/u at [facility] ortho in 1 week for XR and clinical assessment. 01/12/19 10:36 01/12/19 10:41 Subjective: POD # 3 s/p femur ORIF: states he is pain controlled and feeling better. Denies fever, chills, nausea, vomitting, numbness, tingling, SOB, calf pain, or casting complications. Does admit to swelling in his thigh. Objective: Vital Signs Temp Pulse Resp BP Pulse Ox 37.2 C 95 14 123/73 H 100 01/12/19 08:34 01/12/19 08:34 01/12/19 08:34 01/12/19 08:34 01/12/19 08:34 Laboratory Results 01/11/19 05:18 01/12/19 05:02 01/11/19 01/12/19 01/13/19 05:59 05:59 05:59 Intake Total 5584 3700 Output Total 6445 2030 Balance 3069 1670 Physical Exam - Physical Exam General Appearance: WD/WN, alert, no apparent distress Peripheral Pulses: 2+: dorsalis-pedis (R), dorsalis-pedis (L) Skin: normal color, warm/dry, other (mild eccymosis) Extremities: normal inspection, normal capillary refill, swelling (moderate swelling of thigh), other (No symptoms compatible with compartment syndrome today), No normal range of motion, No non-tender, No pedal edema, No calf tenderness, No Rona's sign Neuro/Psych: no motor/sensory deficits, alert, normal mood/affect, oriented x 3 ICD10 Worksheet Patient Problems: Problems Problem Status Onset Acute pneumothorax Acute Dehydration Acute Fall Acute Femur fracture, left Acute Rib fractures Acute T3 vertebral fracture Acute
--- NOTE | 2019-01-12 12:51 | SOAPPROG ---
SOAP Progress Note Assessment/Plan: Assessment: Status post fall, multiple trauma Left femur fracture. D/w post surgery 01/10 with ORIF Right scaphoid fracture. Casted Left rib fractures: Stable, some pain with movement Left pneumothorax: Better today, larger after surgery secondary to positive- pressure ventilation during OR. Following. Saturations fine. Acute blood-loss anemia: Hematocrit 25 yesterday. Follow H/H in AM. Rhabdomyolysis: CPK 8313 today. Renal function fine. Continue intravenous fluids. Prophylaxis: Enoxaparin, eating. Plan: Continue care. Can transfer to medical-surgical status. Follow H/H. Continue adequate pain control. Continue DVT prophylaxis postoperatively. Add iron 20 min of critical care time spent directly with the patient. Subjective: Doing well, up walking with physical therapy with a walker. Objective: Vital Signs Temp Pulse Resp BP Pulse Ox 37.2 C 95 14 123/73 H 100 01/12/19 08:34 01/12/19 08:34 01/12/19 08:34 01/12/19 08:34 01/12/19 08:34 Laboratory Results 01/11/19 05:18 01/12/19 05:02 01/11/19 01/12/19 01/13/19 05:59 05:59 05:59 Intake Total 5584 3700 Output Total 2515 2030 Balance 3069 1670 Laboratory Tests 01/12/19 05:02 Calcium 6.7 L Creatine Kinase 8314 H CXR: Pneumothorax persists but is somewhat smaller. Physical Exam - Physical Exam General Appearance: alert, no apparent distress EENT: PERRL/EOMI, other (Nasal cannula in place at 4 L: Saturations 100%) Neck: normal inspection Respiratory: decreased breath sounds (Bilaterally, left more so than right) Cardiac/Chest: regular rate, rhythm Abdomen: normal bowel sounds, non-tender, soft Skin: normal color, warm/dry Extremities: No pedal edema Neuro/Psych: no motor/sensory deficits, No cognition abnormalities ICD10 Worksheet Patient Problems: Problems Problem Status Onset Femur fracture, left Acute Rib fractures Acute Acute pneumothorax Acute Fall Acute Dehydration Acute T3 vertebral fracture Acute
--- NOTE | 2019-01-12 13:23 | TRAUMAPN ---
Trauma Progress Note Assessment/Plan: 28yo M s/p climbing fall c comminuted L femur fx (s/p ORIF) R wrist fx, L3,4,6 rib fx c ptx - overall, he is doing well - his pain is well controlled - he is TDWBAT to L side, PT/OT - CXR today (images reviewed) show that ptx is still there but no larger. Cont hi flow O2. CT if worsens but clinically it is not affecting him at this time so would cont ot allow to resolve over time Subjective: feels well, no breathing issues Objective: Vital Signs Temp Pulse Resp BP Pulse Ox 37.2 C 95 14 123/73 H 100 01/12/19 08:34 01/12/19 08:34 01/12/19 08:34 01/12/19 08:34 01/12/19 08:34 Laboratory Results 01/11/19 05:18 01/12/19 05:02 01/11/19 01/12/19 01/13/19 05:59 05:59 05:59 Intake Total 0359 1890 Output Total 7674 2030 Balance 3069 1670 - C-Spine Clearance Cervical Spine Cleared: Yes Provider who Cleared Cervical Spine: isai Time Cervical Spine was Cleared: 08:30
[2019-01-12] MEDS: FERROUS SULFATE 325 MG TAB PO SCH (13:30)
[2019-01-13] MEDS: ACETAMINOPHEN 325 MG TAB PO SCH ×4 (00:06→18:04)
--- NOTE | 2019-01-13 07:49 | SOAPPROG ---
SOAP Progress Note Assessment/Plan: Assessment: POD#3 s/p L femur IMN and ORIF with cerclage cables -recovering well. Hg 5.5 today. To be transfused -Ankle and toe strength recovered. Sensation recovering. R scaphoid distal pole fx -fx small and non-displaced. WBAT in cast allowed Plan: -TTWB LLE -WBAT ok through cast R wrist -Pain ctrl -DVT prophy (rec 3 wks total) -24 hr Ancef -PT/OT -Appreciate care of trauma team 01/13/19 07:46 Subjective: Doing well this morning. Got around with PT yesteday. Pain ctrl'd. Eager to go home. Foot sensation returning. Stength better Objective: Vital Signs Temp Pulse Resp BP Pulse Ox 36.8 C 102 H 14 123/72 H 100 01/13/19 03:41 01/13/19 03:41 01/13/19 03:41 01/13/19 03:41 01/13/19 03:41 Laboratory Results 01/13/19 05:55 01/12/19 05:02 01/12/19 01/13/19 01/14/19 05:59 05:59 05:59 Intake Total 3700 3239 Output Total 2029 3100 Balance 1670 139 LLE -dressing changed, incision clean with mild serosang drainage -4+/5 DF/EHL, 5/5 PF/FHL) -SILT (globally decreased sensation in foot) -thigh soft RUE -cast in place ICD10 Worksheet Patient Problems: Problems Problem Status Onset Acute pneumothorax Acute Dehydration Acute Fall Acute Femur fracture, left Acute Rib fractures Acute T3 vertebral fracture Acute
--- NOTE | 2019-01-13 08:15 | TRAUMAPN ---
Trauma Progress Note Assessment/Plan: 28 yo fall climbing c/o left sided pain chest and leg findings of communited left femur fx -Dr Cotto ORIF 01/10. c/o numbness foot TTWB L rib fx 3/ and 6 th with ptx and subcutaneous emphysema chest xray 2.6 cm yesterday (pending today) rt wrist fx casted 01/10 Yadiel WBAT Pain controlled Hgb 5.5 this am transfusion pending AVSS (HR 90-100) RRR diminished left with sq air clear right abd soft NT nD Extr dnviu abrasions dressed Doing well s/p orif reg diet PT/OT No treatment of minimal T3 compression fx Repeat CXR this am non operative management for now. pulmnary toilet Acute blood loss anemia 2 unit pRBCs today DVT prophylaxis x 3 weeks Anticipate d/c 01/1401/11/19 07:43 Objective: Vital Signs Temp Pulse Resp BP Pulse Ox 37.0 C 102 H 19 120/56 L 100 01/13/19 07:49 01/13/19 07:49 01/13/19 07:49 01/13/19 07:49 01/13/19 07:49 Laboratory Results 01/13/19 05:55 01/12/19 05:02 01/12/19 01/13/19 01/14/19 05:59 05:59 05:59 Intake Total 3700 3239 Output Total 2029 3100 Balance 1670 139 - C-Spine Clearance Cervical Spine Cleared: Yes Provider who Cleared Cervical Spine: isai Time Cervical Spine was Cleared: 08:30
[2019-01-13] MEDS: SENNOSIDES/DOCUSATE SODIUM TAB PO SCH ×2 (08:30→21:04)
[2019-01-13] MEDS: FERROUS SULFATE 325 MG TAB PO SCH (08:31)
[2019-01-13] MEDS: ENOXAPARIN 40 MG/0.4 ML SYR SC SCH (12:00)
--- NOTE | 2019-01-13 12:23 | ASMTCMCOM ---
CM Note CM Note Notes: CM reviewed pts chart. PT/OT are both recommending Inpatient Rehab. CM left a msg for Kate Cardenas. CM spoke to Caryl w/ [facility] inpatient rehab. Pt is clinically appropriate. The next step is to obtain auth which Kate should be doing once she gets into the office this afternoon. CM to follow. Plan: [facility] Inpatient Rehab Date Signed: 01/13/2019 12:22 PM Electronically Signed By:JORGE Shah
[2019-01-13] MEDS: BACITRACIN OINTMENT 1 PACKET TP SCH ×2 (18:04→21:02)
[2019-01-14] MEDS: ACETAMINOPHEN 325 MG TAB PO SCH ×5 (00:07→23:51)
[2019-01-14 05:21] LABS: PLATELET COUNT 165 10^3/uL (150-400)
[2019-01-14] MEDS: ENOXAPARIN 40 MG/0.4 ML SYR SC SCH (09:19)
[2019-01-14] MEDS: FERROUS SULFATE 325 MG TAB PO SCH (09:19)
[2019-01-14] MEDS: BACITRACIN OINTMENT 1 PACKET TP SCH ×2 (09:20→20:44)
[2019-01-14] MEDS: SENNOSIDES/DOCUSATE SODIUM TAB PO SCH ×2 (09:34→22:06)
--- NOTE | 2019-01-14 09:54 | TRAUMAPN ---
Trauma Progress Note Assessment/Plan: 28 yo fall climbing L communited femur fx -Dr Cotto ORIF 01/10. c/o decreased sensation to foot - has sensation but different than R. Ankle and below only. L rib fx 10/28 and with ptx and subcutaneous emphysema chest xray - improved. Repeat CXR in 1 week unless symptomatic. Pulmonary toilet rt wrist fx casted 01/10 Yadiel WBAT T3 compression fx. no treatment Acute anemia blood loss. S/P transfusion and responded appropriately Bruising to penis and scrotum. Not tense. No urinary symptoms. DVT prophylaxis for 21 days - there was discussion regarding transition to Xarelto or Elquis. Ortho trauma lit general discusses Lovenox per Dr. Cotto but okay with Elaquis or Xarelto. Alber will discuss with his mom Awaiting inpatient rehab S: Some decreased sensation LLE. Pain controlled. Eating and having BM o: General: Pleasant, well-nourished and well-groomed man lying in bed, mom at bedside HENT: Normocephalic, no gross hearing deficits, mucous membranes moist, pupils equal and round, no scleral icterus Lungs: Clear to auscultation bilaterally, No increased work of breathing Cardiac: Regular rate, no peripheral edema Abdomen: Bowel sounds present, soft and nontender. : Resolving ecchymosis on penis and scrotum Skin: Abrasions and ecchymosis L arm. MSK: R arm in short cast, sensation intact in fingers. L leg incisions cdi. Some swelling by knee Psych: Mood and affect normal Neuro: Decreased sensation L ankle and foot Objective: Vital Signs Temp Pulse Resp BP Pulse Ox 36.9 C 92 16 125/74 H 100 01/14/19 07:37 01/14/19 07:37 01/14/19 07:37 01/14/19 07:37 01/14/19 07:37 Laboratory Results 01/14/19 04:21 01/12/19 05:02 01/13/19 01/14/19 01/15/19 05:59 05:59 05:59 Intake Total 3239 1400 500 Output Total 3100 2100 500 Balance 139 -700 0 - C-Spine Clearance Cervical Spine Cleared: Yes Provider who Cleared Cervical Spine: isai Time Cervical Spine was Cleared: 08:30
--- NOTE | 2019-01-14 13:15 | SOAPPROG ---
SOAP Progress Note Assessment/Plan: Assessment: POD#4 s/p L femur IMN and ORIF with cerclage cables -recovering well. Transfused 2 units yesterday -Ankle and toe strength recovered. Still having subjective numbness in the foot. I suspect this is from traction. Would observe R scaphoid distal pole fx -fx small and non-displaced. WBAT in cast allowed Plan: -TTWB LLE -WBAT ok through cast R wrist -Pain ctrl -DVT prophy (rec 3 wks total). I am ok with Edi, Eliquis, or Xarelto. Lovenox tends to be standard in ortho trauma lit. Discussed with trauma team -24 hr Ancef -PT/OT -Possible transfer to inpt rehab pending -Appreciate care of trauma team 01/14/19 13:11 01/14/19 13:14 Subjective: Doing well this am. Has been getting up and walkig around with PT. Took shower ysterday. Pain ctrl'd. Still some numbness in foot globally below ankle Objective: Vital Signs Temp Pulse Resp BP Pulse Ox 36.9 C 92 16 125/74 H 92 01/14/19 07:37 01/14/19 07:37 01/14/19 07:37 01/14/19 07:37 01/14/19 10:50 Laboratory Results 01/14/19 04:21 01/12/19 05:02 01/13/19 01/14/19 01/15/19 05:59 05:59 05:59 Intake Total 3239 1400 500 Output Total 3100 2100 500 Balance 139 -700 0 LLE -dressing with serosang breakthrough -5/5 DF/PF/RHL/FHL -SILT all dermatomes -thigh soft - Time Spent With Patient Time Spent With Patient: 20 m ICD10 Worksheet Patient Problems: Problems Problem Status Onset Acute pneumothorax Acute Dehydration Acute Fall Acute Femur fracture, left Acute Rib fractures Acute T3 vertebral fracture Acute
--- NOTE | 2019-01-14 14:00 | ASMTCMCOM ---
CM Note CM Note Notes: CM spoke to Kate guzman/ [facility] inpatient rehab. They are still waiting on auth by [employer]. [facility] to follow. Plan: [facility] Inpatient Rehab Date Signed: 01/14/2019 01:58 PM Electronically Signed By:JORGE Shah
[2019-01-14] MEDS: oxyCODONE IR 5 MG TAB PO PRN (20:50)
[2019-01-15] MEDS: ACETAMINOPHEN 325 MG TAB PO SCH ×4 (05:53→23:58)
[2019-01-15] MEDS: FERROUS SULFATE 325 MG TAB PO SCH (08:51)
[2019-01-15] MEDS: ENOXAPARIN 40 MG/0.4 ML SYR SC SCH (08:51)
[2019-01-15] MEDS: BACITRACIN OINTMENT 1 PACKET TP SCH ×2 (08:52→20:26)
[2019-01-15] MEDS: SENNOSIDES/DOCUSATE SODIUM TAB PO SCH ×2 (08:52→20:26)
[2019-01-15] MEDS: oxyCODONE IR 5 MG TAB PO PRN ×2 (08:52→20:26)
--- NOTE | 2019-01-15 09:05 | TRAUMAPN ---
Trauma Progress Note Assessment/Plan: 28 yo fall climbing L communited femur fx -Dr Cotto ORIF 01/10. c/o decreased sensation to foot - has sensation but different than R. Ankle and below only. L rib fx 10/28 and with ptx and subcutaneous emphysema chest xray - improved. Repeat CXR in 1 week unless symptomatic. Pulmonary toilet rt wrist fx casted 01/10 Yadiel WBAT T3 compression fx. no treatment Acute anemia blood loss. S/P transfusion and responded appropriately. CBC ordered for today Bruising to penis and scrotum. Not tense. No urinary symptoms. DVT prophylaxis for 21 days - pt agrees to [facility]. Awaiting inpatient rehab S: Doing well overall. Does c/o persistent numbness in L ankle/foot. Constipated. O: Alert Afebrile, VSS RRR CTAB, no increased WOB Abdomen soft, nontender, nondistended RUE: cast in place, sensation intact, brisk cap refill LLE: incisions well dressed, +pedal pulses Objective: Vital Signs Temp Pulse Resp BP Pulse Ox 36.6 C 106 H 14 108/63 91 L 01/15/19 08:00 01/15/19 08:00 01/15/19 08:00 01/15/19 08:00 01/15/19 08:00 Laboratory Results 01/14/19 04:21 01/12/19 05:02 01/14/19 01/15/19 01/16/19 05:59 05:59 05:59 Intake Total 1400 500 500 Output Total 2100 2450 Balance -700 -1950 500 - C-Spine Clearance Cervical Spine Cleared: Yes Provider who Cleared Cervical Spine: isai Time Cervical Spine was Cleared: 08:30
--- NOTE | 2019-01-15 15:03 | ASMTCMCOM ---
CM Note CM Note Notes: CM spoke to MEENAKSHI Fuller regarding d/c POC. CM spoke to Kate Cardenas w/ [facility] inpatient rehab and she is still in the process of getting auth from pts insurance. CM communicated this to CALEB Jones and she will communicated this w/ pt and pts mom. CM to follow. Plan: [facility] Inpatient Rehab Date Signed: 01/15/2019 03:03 PM Electronically Signed By:JORGE Shah
[2019-01-16] MEDS: oxyCODONE IR 5 MG TAB PO PRN ×3 (02:59→10:03)
[2019-01-16] MEDS: ACETAMINOPHEN 325 MG TAB PO SCH ×2 (05:58→12:50)
--- NOTE | 2019-01-16 08:18 | PDIAF ---
- Diagnosis Diagnosis: femur fx, rib fx, r wrist fx, pneumothorax, lumbar compression fx Code Status: Full Code - Medication Management Discharge Medications: electronically signed and located in the Home Medication List. - Orders Services needed: Physical Therapy Diet Recommendation: no restrictions on diet Diet Texture: Regular Texture Diet Activity/Weight Bearing Restrictions: touch down wt bearing l leg Additional Instructions: ORtho: -TTWB LLE -WBAT RLE in cast (to assist in transfers and use of walker) -Ice as needed L thigh -Dry dressing change daily vs every other day as needed -F/u with Dr. Cotto in 10-14 days -Rec DVT prophy x [address] Schaefer' office in one week. Get a chest xray before your appointment. - Follow Up Care Current Providers and Referrals: Farzad Schaefer MD [Medical Doctor] - follow up in 1 week Patient,NotPresent [Unknown] - As per Instructions Tam Mesa MD [Medical Doctor] - (Follow-up as needed) Dangelo Cotto MD [Medical Doctor] - follow up in 2 weeks
[2019-01-16 08:24] VITALS: BP 131/83
[2019-01-16] MEDS ORDERED: APIXABAN 5 MG TAB PO SCH (09:00)
[2019-01-16] MEDS: FERROUS SULFATE 325 MG TAB PO SCH (09:04)
[2019-01-16] MEDS: SENNOSIDES/DOCUSATE SODIUM TAB PO SCH (09:04)
[2019-01-16] MEDS: BACITRACIN OINTMENT 1 PACKET TP SCH (09:05)
--- NOTE | 2019-01-16 12:04 | GDS ---
[f rep st] TRANSFER SUMMARY Patient is leaving the hospital's inpatient setting to go to inpatient rehab. This 28-year-old male was rock climbing, fell, sustained multiple injuries. After a prolonged extric ation, was brought to the hospital where a left femur fracture, right wrist fracture, left 6th and 7t h rib fractures were identified. A small left pneumothorax which never required a chest tube, and a T3 vertebral body compression fracture. The patient underwent closed reduction and cast placement of the right wrist fracture, ORIF of the le ft femur fracture, observation of the ribs and pneumothorax. At the time of discharge, the patient is ambulating with a walker off oxygen. FINAL DIAGNOSIS: As above. DISPOSITION: Inpatient rehab. Follow up with Dr. Schaefer in a week. Follow up with Neurosurgery and Orthopedic Surgery. /[id number]/MODL
--- NOTE | 2019-01-16 14:17 | ASMTLACE ---
DANIELE Length of stay for Answers: 4-6 days current admission Acuity / Level of Answers: Yes Care: Did the patient have an inpatient admission? # of Emergency department Answers: 1-2 visits in the last 6 months Score: 8 Date Signed: 01/16/2019 02:16 PM Electronically Signed By:Emilee Castro RN
--- NOTE | 2019-01-16 14:25 | ASMTDCNOTE ---
Case Management Discharge Discharge Order Complete? Answers: Yes Patient to Obtain Answers: Other Notes: Inpt Rehab Medications Transportation Arranged Answers: Other Notes: RN, Wheelchair Faxed Final Orders Answers: Yes Agency/Facility Transfer Answers: Yes Report Printed & Faxed to Receiving Agency Family Notified Answers: Yes Discharge Comments Notes: Met with pt, insurance authorization received. Notified RN to call over to Inpt Rehab at 2250. Pt and mother notified of transfer at 3pm. Date Signed: 01/16/2019 02:24 PM Electronically Signed By:Emilee Castro RN
== END 2019-01-16 15:00 | DRG 956 ==
LOC: EDUNIT# → F2N 03:59 → F3N 01-12 17:23
PROVIDERS: ADMIT Surgery; ATTEND Surgery
PROC: 2W3CX2Z Immobilization of Right Lower Arm using Cast (ICD-10-PCS; principal; 2019-01-10 17:00)
PROC: 0QS906Z Reposition Left Femoral Shaft with Intramedullary Internal Fixation Device, Open Approach (ICD-10-PCS; principal; 2019-01-10 17:00)
PROC: 0QS704Z Reposition Left Upper Femur with Internal Fixation Device, Open Approach (ICD-10-PCS; principal; 2019-01-10 17:00)
PROC: 30233N1 Transfusion of Nonautologous Red Blood Cells into Peripheral Vein, Percutaneous Approach (ICD-10-PCS; 2019-01-10 17:00)
DX: S72.352A Displaced comminuted fracture of shaft of left femur, initial encounter for closed fracture (principal); S27.0XXA Traumatic pneumothorax, initial encounter; S22.42XA Multiple fractures of ribs, left side, initial encounter for closed fracture; S22.030A Wedge compression fracture of third thoracic vertebra, initial encounter for closed fracture; D62 Acute posthemorrhagic anemia; S62.014A Nondisplaced fracture of distal pole of navicular [scaphoid] bone of right wrist, initial encounter for closed fracture; S62.234A Other nondisplaced fracture of base of first metacarpal bone, right hand, initial encounter for closed fracture; S72.112A Displaced fracture of greater trochanter of left femur, initial encounter for closed fracture; S72.122A Displaced fracture of lesser trochanter of left femur, initial encounter for closed fracture; W17.89XA Other fall from one level to another, initial encounter; Y93.31 Activity, mountain climbing, rock climbing and wall climbing; Y92.828 Other wilderness area as the place of occurrence of the external cause
CPT/HCPCS: 82435-PO; 82565-PO; 82947-PO; 84132-PO; 84295-PO; 84520-PO; 85014-ER; 92523-GN; 96374; 97116-GP; 97161-GP; 97166-GO; 97530-GO; 97530-GP; 97535-GO; C1713; G0480; J0690; J1100; J1170; J1650; J2250; J2370; J2405; J2704; J3010; L0174; P9016; Q9967

== ENCOUNTER 2019-01-15 12:00 | Inpatient (IN) | payer OTHER ==
[2019-01-16] MEDS ORDERED: SENNOSIDES 1 TAB PO PRN (16:23)
[2019-01-16] MEDS ORDERED: BISACODYL 10 MG SUPP PR PRN (16:23)
--- NOTE | 2019-01-16 16:45 | GHP ---
[f rep st] HISTORY AND PHYSICAL DATE OF ADMISSION: 01/16/2019 He says to "strike all that", and he will start over. /[id number]/MODL
--- NOTE | 2019-01-16 17:05 | GHP ---
[f rep st] HISTORY AND PHYSICAL POST ADMISSION PHYSICIAN EVALUATION AND REHABILITATION TREATMENT PLAN. DATE OF ADMISSION: 01/16/2019 DATE OF EVALUATION: 01/16/2019. TIME OF EVALUATION: 1540 REFERRING FACILITY: [facility] REFERRING PHYSICIAN: Dr. Schaefer IMPAIRMENT GROUP: 8.4. DATE OF ONSET: 01/10/2019. CONSULTING PHYSICIANS: He was seen by Neurosurgery, Dr. Mesa, Orthopedic Surgery, Dr. Cotto, and Pulmonary/Critical Care, Dr. Fairbanks. REHABILITATION DIAGNOSIS: Multiple fractures. ETIOLOGIC DIAGNOSIS: Major multiple fractures. DATE OF SURGERY: 01/10/2019. HISTORY OF PRESENT ILLNESS: This patient fell while rock climbing and hit a ledge. He had a complicated extrication. There was a brief loss of consciousness. Evaluation in the hospital revealed left rib fractures 3, 4, and 6, splintered mid shaft left femur fracture, small T3 compression fracture, right wrist scaphoid bone fracture, pulmonary contusion, and left pneumothorax. He also had acute blood loss anemia requiring transfusions, and rhabdomyolysis. He went to the operating room on 01/10/2019, for an ORIF of the left femur. He had a closed reduction and casting of the right wrist. He is allowed toe-touch weightbearing on the left lower extremity and he can weightbear through the cast on the right upper extremity. The pneumothorax did not require any intervention. STUDIES AND LABS DURING HIS STAY: Chest x-rays serially showed improvement in the left pneumothorax. He also had small pleural effusions. CBC showed development of anemia. Hemoglobin and hematocrit were 13.4 and 38.2 on admission. He also had a markedly elevated white blood cell count at 25.88. On 01/15/2019, leukocytosis had completely resolved. Hemoglobin and hematocrit were 9.2 and 26.6. There was a darlin of hemoglobin and hematocrit of 5.5 and 15.5 on 01/13/2019. Serum chemistry on 01/12/2019, showed slight hyponatremia with a sodium of 134. It had been 132 on the day before. Creatine kinase was 8314 on 01/12/2019. It had been 7914 the day before, so it was overall stable. Laboratory studies were otherwise unremarkable. Toxicology screen in the serum on the day of admission was negative for ethyl alcohol. PRECAUTIONS: He has orthopedic precautions with touchdown weightbearing on the left lower extremity. ACTIVE COMORBIDITIES: There are no active tier 1, tier 2, or tier 3 comorbidities. PAST MEDICAL HISTORY: He has not had any serious medical conditions. PAST SURGICAL HISTORY: He has not had previous surgeries. PRE-HOSPITAL MEDICATIONS: He was not taking any medications. ALLERGIES: There are no known drug allergies. 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 He lives with roommates. There are 10 steps to get to the 2nd floor apartment. Once he is in, there are no steps. 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 He has a past history of smoking but is no longer a smoker. He uses occasional alcohol. His mother is available to help him. FAMILY HISTORY: Noncontributory. REVIEW OF SYSTEMS: He thinks he has lost 1 or 2 pounds through his hospitalization. He denies fevers or chills. He denies cough or dyspnea. He does not have pain with a deep inspiration, though occasionally he gets some chest wall pain. He has left thigh pain approximately 2/10 presently. It was more intense overnight last night and interfered with sleep and was relieved with a dose of oxycodone. There is no chest pain or palpitations. He has a good appetite. He does not have nausea, vomiting, constipation, or diarrhea. There is no dysuria or urinary frequency. There is no joint pain or joint swelling. He has abrasions on his skin, but otherwise there are no rashes or skin breakdown. He is in good spirits and otherwise a 10-point review of systems is negative. PHYSICAL EXAM: VITAL SIGNS: Blood pressure is 124/77, heart rate is 90, respiratory rate is 18, oxygen saturation is 93% on room air, temperature is 36.8 degrees centigrade. His weight is 60.4 kg for a body mass index of 20.2. His admission weight was 63.3 kg. GENERAL: This is a well-nourished, well- developed, thin man, sitting up in a chair, dressed in street clothes, cooperative, and in no acute distress. HEENT: Extraocular movements are intact. Pupils are equal, round, reactive to light. Mucous membranes are moist. Dentition is in good condition. He has an uncrowded airway, Mallampati class 1. NECK: Supple. HEART: There is a regular rate and rhythm with no murmurs, rubs, or gallops. LUNGS: Clear to auscultation bilaterally. ABDOMEN : Soft, nontender, nondistended with normoactive bowel sounds and no hepatosplenomegaly. EXTREMITIES: Left lower extremity has trace edema pretibially. There is no calf tenderness. Radial and dorsalis pedis pulses are 2+ bilaterally. There is no cyanosis or clubbing. NEUROLOGIC: He is alert and oriented x3. Cranial nerves 2-12 are grossly intact. There is no focal weakness. Sensation is intact to light touch. SKIN: He has multiple abrasions on his limbs. He has 3 discrete incisions down his lateral left thigh. They are stapled. There is some serous drainage from the middle and distal incisions. There is no erythema and no purulence. CURRENT LEVEL OF FUNCTION PER THE PREADMISSION SCREEN,: He was on a regular diet. Grooming was done with standby assist. Bathing required moderate assist with voice cues for showering. Lower body dressing required standby assist and voice cues using a prospecting driller, a sock aid and a long-handled shoe horn. For toileting, he needed setup to use a handheld urinal. He was continent of bladder and bowel. Bed mobility required minimal assist with assist for the left lower extremity management and cues to use the left upper extremity. Transfers required contact guard assist. He uses a right-sided platform walker. Sitting balance required standby assistance. Standing balance required contact guard with a right platform front wheeled walker. Endurance was fair. He ambulated 12 feet with a right platform front wheeled walker. Communication and cognition were considered normal. On today's exam, he has improved seated and standing balance and can arise from a chair independently to a front-wheeled walker. IMPRESSION: This is a 28-year-old man who suffered a fall while rock climbing. He fractured his left femur, scaphoid bone in his right wrist, the T3 vertebra and several ribs. He suffered a pulmonary contusion and pneumothorax. He had brief loss of consciousness at the scene. He had a complicated extrication and had rhabdomyolysis. He had ORIF of the left femur and is toe- touch weightbearing on the left. He had closed reduction and casting of the right wrist fracture and may weightbear through the cast. Pneumothorax is resolving. He has had overall adequate symptom control with scheduled acetaminophen plus oxycodone as needed. He has anemia and received transfusions. He is medically stable and appropriate for inpatient rehabilitation. His goals are to complete a rehabilitation stay and then discharge home with home health care and support of his mother and girlfriend. For a safe discharge , he will need to achieve modified independence for basic ADLs including bed mobility, transfers and ambulation with a front-wheeled walker for household distances. He may need a wheelchair for community distance, pending progress. He will need to maintain weightbearing precautions while performing all activities. He will have therapy with physical therapy and occupational therapy for 90 minutes per day for each discipline, 5-7 days per week. His expected duration of stay is 5-7 days. It is anticipated that upon discharge he will benefit from outpatient OT and PT. PLAN: 1. Debility with toe-touch weightbearing on the left, status post multiple fractures from a rock climbing injury on 01/10/2019. Physical Therapy and Occupational Therapy to optimize mobility and activities of daily living. 2. Pain Management. Will schedule Tylenol as it had been prescribed in the hospital and continue oxycodone p.r.n. 3. Anemia. Recheck CBC in the morning. 4. Hyponatremia and rhabdomyolysis. Recheck a basic metabolic profile and CPK in the morning. 5. Weight loss. He will have consultation with the dietitian. 6. Pneumothorax. He is to have repeat chest x-ray in 1 week and then follow up with Trauma Surgery, Dr. Schaefer. 7. Prophylaxis. He is at elevated risk for deep venous thrombosis with his fractures and status post open reduction, internal fixation. Continue apixaban for 3 weeks, through February 05, 2019. 8. Followup. He is to see trauma surgeon, Dr. Schaefer, in 1 week, January 22, 2019, with a chest x-ray on that same day. He is to see orthopedic surgeon, Dr. Cotto, in 10-14 days, which would be the first week of January. He is to see neurosurgeon , Dr. Mesa, as needed if there are any complications from the compression fracture. /[id number]/MODL MTDD
[2019-01-16] MEDS: APIXABAN 5 MG TAB PO SCH (21:04)
[2019-01-16] MEDS: ACETAMINOPHEN 500 MG TAB PO SCH (21:04)
[2019-01-16] MEDS: oxyCODONE IR 5 MG TAB PO PRN (21:05)
[2019-01-17] MEDS: oxyCODONE IR 5 MG TAB PO PRN ×2 (00:28→05:09)
[2019-01-17] MEDS ORDERED: MELATONIN 3 MG TAB ONE (01:26)
[2019-01-17] MEDS ORDERED: MELATONIN 3 MG TAB PO PRN (01:30)
[2019-01-17] MEDS: ACETAMINOPHEN 500 MG TAB PO SCH ×3 (05:09→21:03)
[2019-01-17 05:13] LABS: PLATELET COUNT 323 10^3/uL (150-400)
[2019-01-17 05:29] LABS: CREATINE KINASE 1093 IU/L (0-224)
[2019-01-17] MEDS: APIXABAN 5 MG TAB PO SCH ×2 (08:18→21:03)
--- NOTE | 2019-01-17 11:01 | SOAPPROG ---
SOAP Progress Note Assessment/Plan: Assessment: Debility with toe-touch weightbearing on the left, status post multiple fractures from a rock climbing injury on 01/10/2019. Physical Therapy and Occupational Therapy to optimize mobility and activities of daily living. Pain Management. Continue scheduled acetaminophen and oxycodone p.r.n. * Add morphine SR 15 mg at HS starting 01/17/2019 due to awakening with pain overnight. Anemia. Improving on CBC 01/17/2019. Hyponatremia and rhabdomyolysis. Hyponatremia is resolved and rhabdomyolysis is resolving on labs 01/17/2019. Weight loss. He will have consultation with the dietitian. Pneumothorax. He is to have repeat chest x-ray in 1 week and then follow up with Trauma Surgery, Dr. Schaefer. Prophylaxis. He is at elevated risk for deep venous thrombosis with his fractures and status post open reduction, internal fixation. Continue apixaban for 3 weeks, through February 05, 2019. Followup. He is to see trauma surgeon, Dr. Schaefer, in 1 week, January 22, 2019, with a chest x-ray on that same day. He is to see orthopedic surgeon, Dr. Cotto, in 10-14 days, which would be the first week of January. He is to see neurosurgeon , Dr. Mesa, as needed if there are any complications from the compression fracture. 01/17/19 11:18 Subjective: Awakens at night with aching in his left thigh. It does not radiate. It is relieved with oxycodone. He has awakened in this way for the past 3 nights. Otherwise without complaints. No fevers or chills, no cough or dyspnea, bowels moving. Objective: Vital Signs Temp Pulse Resp BP Pulse Ox 36.9 C 97 18 129/90 H 92 01/17/19 08:00 01/17/19 08:00 01/17/19 08:00 01/17/19 08:00 01/17/19 08:00 Laboratory Results 01/17/19 04:56 01/17/19 04:56 01/16/19 01/17/19 01/18/19 05:59 05:59 05:59 Intake Total 350 300 Output Total 1300 Balance -950 300 Physical Exam - Physical Exam General Appearance: WD/WN, alert, no apparent distress Respiratory: normal breath sounds, No decreased breath sounds, No crackles, No rhonchi, No wheezing Extremities: No calf tenderness Neuro/Psych: alert, normal mood/affect, oriented x 3 ICD10 Worksheet Patient Problems: Problems Problem Status Onset Acute pneumothorax Acute Dehydration Acute Fall Acute Femur fracture, left Acute Rib fractures Acute T3 vertebral fracture Acute
--- NOTE | 2019-01-17 11:01 | PDOREHIP ---
Admission [facility] - Admission - 3 Day Assessment Period Admission Date/Day 1: 01/16/19 Day 2: 01/17/19 Day 3: 01/18/19 - Active Diagnoses Comorbidities and Co-existing Conditions at Admission: 98568. None of the Above - Skin Conditions Unhealed Pressure Ulcer (1 or more/Stage 1 or >)-Admission: 0. No # Stage 1 Pressure Ulcers-Admission: 0 # Stage 2 Pressure Ulcers-Admission: 0 # Stage 3 Pressure Ulcers-Admission: 0 # Stage 4 Pressure Ulcers-Admission: 0 # Unstageable Pressure Ulcers (Non-remove Dress)-Admission: 0 # Unstageable Pressure Ulcers (Slough/Eschar)-Admission: 0 # Unstageable Pressure Ulcers (Deep Tissue Injury)-Admission: 0
[2019-01-17] MEDS: morphINE SR 15 MG TAB PO SCH (21:04)
[2019-01-18] MEDS: oxyCODONE IR 5 MG TAB PO PRN (03:36)
[2019-01-18] MEDS: ACETAMINOPHEN 500 MG TAB PO SCH ×3 (05:33→21:08)
--- NOTE | 2019-01-18 09:00 | SOAPPROG ---
SOAP Progress Note Assessment/Plan: Assessment: Debility with toe-touch weightbearing on the left, status post multiple fractures from a rock climbing injury on 01/10/2019. Physical Therapy and Occupational Therapy to optimize mobility and activities of daily living. Pain Management. Continue scheduled acetaminophen and oxycodone p.r.n. * Add morphine SR 15 mg at HS starting 01/17/2019 due to awakening with pain overnight. HE REPORTS HE SLEPT MUCH BETTER SUNDAY NIGHT. WILL ADD LIDODERM PATCH LEFT ANTERIOR RIB CAGE FOR PAIN SECONDARY TO MULTIPLE BROKEN RIBS. Anemia. Improving on CBC 01/17/2019. CBC 9 0.6/29.0. SLIGHTLY TACHYCARDIC WITH PULSE RATE 100. Hyponatremia and rhabdomyolysis. Hyponatremia is resolved and rhabdomyolysis is resolving on labs 01/17/2019. Weight loss. He will have consultation with the dietitian. Pneumothorax. He is to have repeat chest x-ray in 1 week and then follow up with Trauma Surgery, Dr. Schaefer. LUNGS CLEAR. PATIENT DENIES SHORTNESS OF BREATH Prophylaxis. He is at elevated risk for deep venous thrombosis with his fractures and status post open reduction, internal fixation. Continue apixaban for 3 weeks, through February 05, 2019. Followup. He is to see trauma surgeon, Dr. Schaefer, in 1 week, January 22, 2019, with a chest x-ray on that same day. He is to see orthopedic surgeon, Dr. Cotto, in 10-14 days, which would be the first week of January. He is to see neurosurgeon , Dr. Mesa, as needed if there are any complications from the compression fracture. 01/18/19 08:58 Subjective: He reports he slept better last night after the morphine SR 15 mg was initiated. Still little bit restless at night but overall sleeping much better. Reports numbness in left foot continues to resolve. Has a little bit of aching discomfort around the left femur incision site. He reports he is concerned about the extent of bruising in the medial thigh, scrotum and penis. He denies suprapubic pain. Denies dysuria. Reports he has not had no erection since the initial injury. He reports he is tolerating touchdown weight-bearing left lower extremity and is tolerating the crutch with left forearm trough. Objective: Vital Signs Temp Pulse Resp BP Pulse Ox 36.6 C 95 16 142/88 H 93 01/18/19 07:46 01/18/19 07:46 01/18/19 07:46 01/18/19 07:46 01/18/19 07:46 Laboratory Results 01/17/19 04:56 01/17/19 04:56 01/17/19 01/18/19 01/19/19 05:59 05:59 05:59 Intake Total 350 2000 Output Total 1300 900 Balance -950 1100 Physical Exam - Physical Exam General Appearance: WD/WN, alert, no apparent distress Neck: non-tender, full range of motion, supple Respiratory: lungs clear, normal breath sounds Cardiac/Chest: No edema Abdomen: normal bowel sounds, non-tender, soft Skin: other (Significant ecchymoses medial aspect of left thigh into inguinal region, scrotum, dorsal region of penis. No erythema. No induration. No increased temperature.) Extremities: No swelling, No Rona's sign Neuro/Psych: normal mood/affect, oriented x 3, abnormal rn staffing II-XII, motor weakness (Difficulty with left hip flexion) ICD10 Worksheet Patient Problems: Problems Problem Status Onset Acute pneumothorax Acute Dehydration Acute Fall Acute Femur fracture, left Acute Rib fractures Acute T3 vertebral fracture Acute
[2019-01-18] MEDS: APIXABAN 5 MG TAB PO SCH ×2 (09:07→21:08)
[2019-01-18] MEDS: LIDOCAINE 4%/MENTHOL 1% PATCH TD SCH (10:23)
[2019-01-18] MEDS: morphINE SR 15 MG TAB PO SCH (21:08)
[2019-01-18] MEDS: PATCH REMOVAL 1 EA PATCH TD SCH (21:09)
[2019-01-19] MEDS: ACETAMINOPHEN 500 MG TAB PO SCH ×3 (05:36→21:05)
[2019-01-19] MEDS: oxyCODONE IR 5 MG TAB PO PRN (05:37)
[2019-01-19] MEDS: LIDOCAINE 4%/MENTHOL 1% PATCH TD SCH (08:03)
[2019-01-19] MEDS: APIXABAN 5 MG TAB PO SCH ×2 (08:04→21:05)
--- NOTE | 2019-01-19 09:42 | SOAPPROG ---
SOAP Progress Note Assessment/Plan: Assessment: Debility with toe-touch weightbearing on the left, status post multiple fractures from a rock climbing injury on 01/10/2019. Physical Therapy and Occupational Therapy to optimize mobility and activities of daily living. Pain Management. Continue scheduled acetaminophen and oxycodone p.r.n. * Add morphine SR 15 mg at HS starting 01/17/2019 due to awakening with pain overnight. HE REPORTS SIGNIFICANTLY IMPROVED LEFT ANTERIOR CHEST WALL PAIN AFTER BEGINNING LIDODERM PATCH YESTERDAY. MILD HYPERTENSION. PREVIOUS BLOOD PRESSURE READINGS HAVE BEEN SLIGHTLY HIGH. BLOOD PRESSURE ON 35/. MOST RECENT SERUM CREATININE NOTED TO BE 0.6. PATIENT DENIES FAMILIAR HYPERTENSION. WILL CONTINUE TO MONITOR. MAY BE RELATED TO PAIN AND OR ANXIETY. Anemia. Improving on CBC 01/17/2019. CBC 9 0.6/29.0. PULSE RATE 96 Hyponatremia and rhabdomyolysis. Hyponatremia is resolved and rhabdomyolysis is resolving on labs 01/17/2019. Weight loss. He will have consultation with the dietitian. Pneumothorax. He is to have repeat chest x-ray in 1 week and then follow up with Trauma Surgery, Dr. Schaefer. LUNGS CLEAR. PATIENT DENIES SHORTNESS OF BREATH Prophylaxis. He is at elevated risk for deep venous thrombosis with his fractures and status post open reduction, internal fixation. Continue apixaban for 3 weeks, through February 05, 2019. WILL DC SCDS PATIENT HAS NOT BEEN WEARING THEM Followup. He is to see trauma surgeon, Dr. Schaefer, in 1 week, January 22, 2019, with a chest x-ray on that same day. He is to see orthopedic surgeon, Dr. Cotto, in 10-14 days, which would be the first week of January. He is to see neurosurgeon , Dr. Mesa, as needed if there are any complications from the compression fracture. 01/19/19 09:40 Subjective: He reports that the Lidoderm patch helped significantly with left chest wall pain secondary to rib fractures. He reports that the numbness in his left foot is unchanged. No other complaints per patient or rehab staff. He is independent in his room. He denies feeling anxious, denies headache. Objective: Vital Signs Temp Pulse Resp BP Pulse Ox 36.6 C 73 17 135/84 H 96 01/19/19 05:45 01/19/19 05:45 01/19/19 05:45 01/19/19 05:45 01/19/19 05:45 Laboratory Results 01/17/19 04:56 01/17/19 04:56 01/18/19 01/19/19 01/20/19 05:59 05:59 05:59 Intake Total 1999 1850 1175 Output Total 900 1999 Balance 1100 -150 1175 Physical Exam - Physical Exam General Appearance: WD/WN, alert, no apparent distress Respiratory: lungs clear, normal breath sounds Cardiac/Chest: regular rate, rhythm (Pulse 96) Abdomen: normal bowel sounds, non-tender, soft Skin: normal color, warm/dry, other (Large ecchymoses anteromedial aspect left thigh extending proximally to inguinal region, scrotum and penis.) Extremities: No calf tenderness, No swelling, No Rona's sign (Right wrist cast fits well.) Neuro/Psych: alert, normal mood/affect, oriented x 3, motor weakness (Left hip flexor weakness) ICD10 Worksheet Patient Problems: Problems Problem Status Onset Acute pneumothorax Acute Dehydration Acute Fall Acute Femur fracture, left Acute Rib fractures Acute T3 vertebral fracture Acute
[2019-01-19] MEDS: morphINE SR 15 MG TAB PO SCH (21:06)
[2019-01-19] MEDS: PATCH REMOVAL 1 EA PATCH TD SCH (22:24)
[2019-01-19] MEDS: METHOCARBAMOL 500 MG TAB PO PRN (22:27)
[2019-01-20] MEDS: ACETAMINOPHEN 500 MG TAB PO SCH ×3 (06:44→21:26)
--- NOTE | 2019-01-20 08:20 | PDOREHIP ---
Admission [facility] - Admission - 3 Day Assessment Period Admission Date/Day 1: 01/16/19 Day 2: 01/17/19 Day 3: 01/18/19 - Active Diagnoses Comorbidities and Co-existing Conditions at Admission: [id number]. None of the Above - Skin Conditions # Stage 1 Pressure Ulcers-Admission: 0 # Stage 2 Pressure Ulcers-Admission: 0 # Stage 3 Pressure Ulcers-Admission: 0 # Stage 4 Pressure Ulcers-Admission: 0 # Unstageable Pressure Ulcers (Non-remove Dress)-Admission: 0 # Unstageable Pressure Ulcers (Slough/Eschar)-Admission: 0 # Unstageable Pressure Ulcers (Deep Tissue Injury)-Admission: 0 Discharge [facility] - Discharge - 3 Day Assessment Period 2 Days Prior to Anticipated Discharge Date: 01/19/19 1 Day Prior to Anticipated Discharge Date: 01/20/19 Anticipated Discharge Date: 01/21/19
--- NOTE | 2019-01-20 08:23 | SOAPPROG ---
SOAP Progress Note Assessment/Plan: Assessment: Debility with toe-touch weightbearing on the left, status post multiple fractures from a rock climbing injury on 01/10/2019. Physical Therapy and Occupational Therapy to optimize mobility and activities of daily living. CURRENTLY HE IS INDEPENDENT IN HIS ROOM. Pain Management. Continue scheduled acetaminophen and oxycodone p.r.n. * Add morphine SR 15 mg at HS starting 01/17/2019 due to awakening with pain overnight. HE HAD SOME BACK STIFFNESS YESTERDAY WHICH RESOLVED AFTER BEGINNING ROBAXIN 500 TWICE DAILY. DISCHARGE MEDICATIONS INCLUDE OXYCODONE IR. THE MORPHINE WILL BE DISCONTINUED. HE WAS ALSO GIVEN SCRIPTS FOR TYLENOL 1000 MG Q.8 HOURS AND ROBAXIN 500 TWICE DAILY P.R.N. MUSCLE PAIN/STIFFNESS. MILD HYPERTENSION. PREVIOUS BLOOD PRESSURE READINGS HAVE BEEN SLIGHTLY HIGH. BLOOD PRESSURE ON 01/20 134/76 MOST RECENT SERUM CREATININE NOTED TO BE 0.6. PATIENT DENIES FAMILIAR HYPERTENSION. WILL CONTINUE TO MONITOR. MAY BE RELATED TO PAIN AND OR ANXIETY. Anemia. Improving on CBC 01/17/2019. CBC 9 0.6/29.0. PULSE RATE 96 Hyponatremia and rhabdomyolysis. Hyponatremia is resolved and rhabdomyolysis is resolving on labs 01/17/2019. Weight loss. He will have consultation with the dietitian. Pneumothorax. He is to have repeat chest x-ray in 1 week and then follow up with Trauma Surgery, Dr. Schaefer. LUNGS CLEAR. PATIENT DENIES SHORTNESS OF BREATH Prophylaxis. He is at elevated risk for deep venous thrombosis with his fractures and status post open reduction, internal fixation. Continue apixaban for 3 weeks, through February 05, 2019. WILL DC SCDS PATIENT HAS NOT BEEN WEARING THEM DISPOSITION: HE IS READY FOR DISCHARGE ON 01/21. DC ORDER PLACED ON 01/20 ALONG WITH DISCHARGE MEDICATIONS. Followup. He is to see trauma surgeon, Dr. Schaefer, in 1 week, January 22, 2019, with a chest x-ray on that same day. He is to see orthopedic surgeon, Dr. Cotto, in 10-14 days, which would be the first week of January. He is to see neurosurgeon , Dr. Mesa, as needed if there are any complications from the compression fracture. 01/20/19 08:23 Subjective: HE REPORTS HE HAD SOME LOW BACK STIFFNESS YESTERDAY. NO THIS IMPROVED AFTER BEGINNING ROBAXIN 500. NO OTHER COMPLAINTS. HE IS TOLERATING PHYSICAL AND OCCUPATIONAL THERAPY WELL. HE IS INDEPENDENT IN HIS ROOM. HE IS SLATED FOR DISCHARGE ON 01/21. HE REPORTS THE NUMBNESS IN HIS LEFT FOOT IS RESOLVED Objective: Vital Signs Temp Pulse Resp BP Pulse Ox 36.4 C 89 15 134/76 H 97 01/19/19 19:54 01/19/19 19:54 01/19/19 19:54 01/19/19 19:54 01/19/19 19:54 Laboratory Results 01/17/19 04:56 01/17/19 04:56 01/19/19 01/20/19 01/21/19 05:59 05:59 05:59 Intake Total 1850 3005 Output Total 2000 200 1400 Balance -150 2805 -1400 Physical Exam - Physical Exam General Appearance: WD/WN, alert, no apparent distress Respiratory: lungs clear, normal breath sounds Cardiac/Chest: regular rate, rhythm, No edema Abdomen: normal bowel sounds, non-tender, soft Skin: other (ECCHYMOSES ANTEROMEDIAL ASPECT OF THE LEFT THIGH WHICH EXTENDS INTO THE INGUINAL REGION, SCROTUM ENDORSE SOME OF PENIS THIS SLOWLY RESOLVING. NO ERYTHEMA OR INDURATION NOTED IN THE LEFT THIGH.) Lymphatic: No inguinal node tender (L) Neuro/Psych: alert, normal mood/affect, oriented x 3, motor weakness (HAS 4/5 LEFT HIP FLEXORS, 4+/5 QUADRICEPS, HAMSTRINGS, NO LEFT FOOT DROP.) ICD10 Worksheet Patient Problems: Problems Problem Status Onset Acute pneumothorax Acute Dehydration Acute Fall Acute Femur fracture, left Acute Rib fractures Acute T3 vertebral fracture Acute
[2019-01-20] MEDS: APIXABAN 5 MG TAB PO SCH ×2 (08:33→21:27)
[2019-01-20] MEDS: LIDOCAINE 4%/MENTHOL 1% PATCH TD SCH (08:34)
[2019-01-20] MEDS: morphINE SR 15 MG TAB PO SCH (21:27)
[2019-01-20] MEDS: METHOCARBAMOL 500 MG TAB PO PRN (21:29)
[2019-01-20] MEDS: PATCH REMOVAL 1 EA PATCH TD SCH (22:02)
[2019-01-21] MEDS: ACETAMINOPHEN 500 MG TAB PO SCH ×2 (06:24→13:00)
[2019-01-21] MEDS: APIXABAN 5 MG TAB PO SCH (08:09)
[2019-01-21] MEDS: LIDOCAINE 4%/MENTHOL 1% PATCH TD SCH (08:10)
[2019-01-21 09:58] VITALS: BP 136/81
--- NOTE | 2019-01-21 12:16 | SOAPPROG ---
SOAP Progress Note Assessment/Plan: Assessment: Debility with toe-touch weightbearing on the left, status post multiple fractures from a rock climbing injury on 01/10/2019. * Functional independence measure 116 on 01/21/2019. Independent mobility and ADLs. * Continue Physical Therapy and Occupational Therapy to optimize mobility and activities of daily living. Pain Management. Continue scheduled acetaminophen and oxycodone p.r.n. * Add morphine SR 15 mg at HS starting 01/17/2019 due to awakening with pain overnight. Anemia. Improving on CBC 01/17/2019. Hyponatremia and rhabdomyolysis. Hyponatremia is resolved and rhabdomyolysis is resolving on labs 01/17/2019. Weight loss. He will have consultation with the dietitian. Pneumothorax. He is to have repeat chest x-ray in 1 week and then follow up with Trauma Surgery, Dr. Schaefer. Prophylaxis. He is at elevated risk for deep venous thrombosis with his fractures and status post open reduction, internal fixation. Continue apixaban for 3 weeks, through February 05, 2019. DISPOSITION: Attended staffing, 15 min. Discussed with case management, nursing, dietitian, PT, OT. Plans to discharge today, 01/21/2019. Will stay at a hotel with his mother until his follow ups on 01/23/2019, subsequently will travel to [place] with assistance from girlfriend and girlfriend's parents until he is able to find an apartment there with his girlfriend. Followup. He is to see trauma surgeon, Dr. Schaefer, in 1 week, January 22, 2019, with a chest x-ray on that same day. He is to see orthopedic surgeon, Dr. Cotto, in 10-14 days, which would be the first week of January. He is to see neurosurgeon , Dr. Mesa, as needed if there are any complications from the compression fracture. 01/21/19 11:54 Subjective: No complaints. Not in pain. Sleeping well. Nocough or dyspnea, no fevers or chills. Objective: Vital Signs Temp Pulse Resp BP Pulse Ox 36.9 C 70 16 136/81 H 96 01/21/19 08:00 01/21/19 08:00 01/21/19 08:00 01/21/19 08:00 01/21/19 08:00 Laboratory Results 01/17/19 04:56 01/17/19 04:56 01/20/19 01/21/19 01/22/19 05:59 05:59 05:59 Intake Total 3005 2165 Output Total 200 1400 Balance 2805 765 Physical Exam - Physical Exam General Appearance: WD/WN, alert, no apparent distress Respiratory: No respiratory distress, No accessory muscle use Skin: normal color, warm/dry Neuro/Psych: no motor/sensory deficits, alert, normal mood/affect, oriented x 3 , other (Ambulating independently with crutches, platform on L, maintianing toe touch weightbearing restrictions.) ICD10 Worksheet Patient Problems: Problems Problem Status Onset Acute pneumothorax Acute Dehydration Acute Fall Acute Femur fracture, left Acute Rib fractures Acute T3 vertebral fracture Acute
--- NOTE | 2019-01-21 13:10 | GDS ---
[f rep st] DISCHARGE SUMMARY ADMITTING DIAGNOSIS: Multiple fractures. DISCHARGE DIAGNOSIS: Multiple fractures. CONSULTATIONS: There were none. COMPLICATIONS: There were none. PROCEDURES: There were none. HISTORY AND HOSPITAL COURSE: This patient was admitted from [facility]. He was brought there on 01/10/2019, after he suffered a fall while rock climbing with fracture of the right femur, the left scaphoid bone, a T3 compression fracture, rib fractures and a pneumothorax. In the hospital, he underwent ORIF of the left femur and is toe-touch weightbearing on that leg. He had closed reduction and casting of the right wrist and he is allowed to weight bear through the cast. He had anemia and received a blood transfusion. He had hyponatremia and rhabdomyolysis both of which were resolving when he was discharged from the hospital. He was otherwise medically stable and appropriate for inpatient rehabilitation. He did well in rehabilitation and rapidly recovered his independence. He was independent with mobility using crutches with a platform on the left crutch. He was able to climb and descend steps. He was independent with activities of daily living. He had pain interfering with sleep overnight. He was treated with morphine SR at bedtime and was able to obtain much better sleep. As of the day of discharge he was using minimal oxycodone and does not think he will need the sustained release morphine at night anymore. He reports he had a muscle spasm in his back while sitting up and working on his computer and was given some methocarbamol, which he found helpful. His anemia was improving and rhabdomyolysis was mostly resolved. On 01/17/2019 , hemoglobin was 9.6 and hematocrit was 29 and his creatine kinase was at 1093. Creatinine kinase had been over 8000 during his hospitalization. Hemoglobin and hematocrit were 9.2 and 26.6 on 01/15/2019. DISCHARGE PLAN: Disposition is to a handicapped accessible hotel room with his mother for 2 days and then after followup with Trauma and Orthopedic Surgery he will move to [place] with his girlfriend where he will initially stay with his girlfriend and her parents. Condition is good. ACTIVITY: Ad pasha but to maintain toe-touch weightbearing on the left lower extremity. DIET: Regular. ALLERGIES: There are no known drug allergies. MEDICATIONS UPON DISCHARGE: 1. Acetaminophen 1000 mg p.o. q.8 hours. 2. Apixaban 5 mg p.o. twice daily for 8 more days through January 30, 2019. 3. Lidocaine patch. 4. Melatonin 3 mg p.o. at bedtime p.r.n. 5. Methocarbamol 500 mg p.o. twice daily p.r.n. 6. Oxycodone 5 to 10 mg p.o. q.4 hours p.r.n. 7. Senna 1 tab p.o. twice daily p.r.n. ISSUES TO BE ADDRESSED AT FOLLOWUP: 1. Left femur fracture status post ORIF. He will follow up with orthopedic surgeon, Dr. Dangelo Cotto on 01/23/2019. 2. Pneumothorax. He will follow up with trauma surgeon Dr. Schaefer on 01/23/2019. 3. Functional status: He will continue therapies as needed once he arrives in [place]. He will follow up with his new primary care provider in [place]. Greater than 30 minutes were spent on this discharge including medication reconciliation, coordination of care, and counseling patient and his mother. The patient was seen and examined on the day of discharge. Copy requested to: [facility] LOC Cao /[id number]/MODL MTDD
== END 2019-01-21 13:15 | disposition home or self-care (01) | DRG 560 ==
LOC: F3E 01-16 14:20
PROVIDERS: ADMIT Internal Medicine Hospice and Palliative Medicine; ATTEND Internal Medicine Hospice and Palliative Medicine
PROC: F08Z7ZZ Vocational Activities and Functional Community or Work Reintegration Skills Treatment (ICD-10-PCS; principal; 2019-01-16)
PROC: F07M3ZZ Motor Function Treatment of Musculoskeletal System - Whole Body (ICD-10-PCS; principal; 2019-01-16)
DX: S72.302D Unspecified fracture of shaft of left femur, subsequent encounter for closed fracture with routine healing (principal); S22.42XD Multiple fractures of ribs, left side, subsequent encounter for fracture with routine healing; S22.030D Wedge compression fracture of third thoracic vertebra, subsequent encounter for fracture with routine healing; S62.001D Unspecified fracture of navicular [scaphoid] bone of right wrist, subsequent encounter for fracture with routine healing; S27.321D Contusion of lung, unilateral, subsequent encounter; S27.0XXD Traumatic pneumothorax, subsequent encounter; T79.6XXD Traumatic ischemia of muscle, subsequent encounter; Y93.31 Activity, mountain climbing, rock climbing and wall climbing; Y92.828 Other wilderness area as the place of occurrence of the external cause; W17.89XD Other fall from one level to another, subsequent encounter; D62 Acute posthemorrhagic anemia; E87.1 Hypo-osmolality and hyponatremia
CPT/HCPCS: 97110-GO; 97110-GP; 97116-GP; 97140-GP; 97161-GP; 97165-GO; 97530-GO; 97530-GP; 97535-GO

== ENCOUNTER → 2019-01-24 | Outpatient (CLI) | payer OTHER | LOC: FIMAGING 13:13 ==